=== PATIENT | male | born 1965 | race Hispanic/Latino ===

== ENCOUNTER 2018-06-01 09:18 | Inpatient (IN) | payer OTHER ==
[~2018-06-01] VITALS: Ht 162.6 cm; Wt 74.8 kg
[2018-06-01 11:30] LABS: BASOPHILS % (AUTO) 0.3 % (0.0-5.0); EOSINOPHILS % (AUTO) 1.9 % (0.0-8.0); HEMATOCRIT 24.8 % (42-54); LYMPHOCYTES % (AUTO) 28.8 % (21.0-51.0); MEAN CORPUSCULAR HEMOGLOBIN 25.6 pg (27.0-33.0); MEAN CORPUSCULAR VOLUME 77.6 fL (79-99); MONOCYTES % (AUTO) 9.6 % (3.0-13.0); NEUTROPHILS % (AUTO) 59.4 % (40.0-77.0); PLATELET COUNT (AUTO) 328 K/uL (130-400); RED CELL DISTRIBUTION WIDTH 13.4 % (11.0-15.5); WHITE BLOOD COUNT (AUTO) 8.8 K/uL (4.8-10.8)
[2018-06-01 11:37] LABS: POTASSIUM 3.9 mmol/L (3.5-5.1)
[2018-06-01 11:50] LABS: APPEARANCE,URINE TURBID (CLEAR); BILIRUBIN,URINE MODERATE (NEGATIVE); COLOR,URINE RED (YELLOW); GLUCOSE, URINE (UA) NEGATIVE (NEGATIVE); KETONES,URINE 5 mg/dL (NEGATIVE); LEUKOCYTE ESTERASE ,URINE MODERATE (NEGATIVE); NITRATE,URINE POSITIVE (NEGATIVE); OCCULT BLOOD,URINE LARGE (NEGATIVE); PH,URINE 6.5 (5.0-8.0); PROTEIN,URINE >=300 (NEGATIVE)
[2018-06-01 12:31] LABS: BACTERIA,URINE Few /HPF (None Seen); RBC,URINE TNTC /HPF (0-1); SQUAMOUS EPITHELIAL CELL,UR None Seen /HPF (0-2)
[2018-06-01] MEDS ORDERED: CEFTRIAXONE SODIUM 1 GM ONE (12:41)
[2018-06-01] MEDS ORDERED: SODIUM CHLORIDE 0.9% 0 ML IV ONE (12:42)
[2018-06-01] MEDS ORDERED: MORPHINE SULFATE 2 MG/ML 1ML SYG IV PRN (14:00)
[2018-06-01] MEDS: CEFTRIAXONE SODIUM 1 GM IV SCH (14:00)
[2018-06-01 17:16] VITALS: BP 120/63
[2018-06-01 19:08] VITALS: BP 118/65
[2018-06-01 19:23] LABS: HEMATOCRIT 21.6 % (42-54)
[2018-06-01] MEDS: SODIUM CHLORIDE 0.9% 1000ML 1,000 ML IV SCH ×2 (20:33→23:02)
[2018-06-01] MEDS: FAMOTIDINE 20MG TAB 20 MG TAB PO SCH (20:34)
[2018-06-01 23:18] VITALS: BP 105/55
[2018-06-02 01:41] LABS: HEMATOCRIT 21.7 % (42-54)
[2018-06-02 03:27] VITALS: BP 104/57
[2018-06-02 06:02] LABS: HEMATOCRIT 22.2 % (42-54); MEAN CORPUSCULAR HEMOGLOBIN 25.8 pg (27.0-33.0); MEAN CORPUSCULAR HGB CONC 33.6 g/dL (32.0-36.0); MEAN CORPUSCULAR VOLUME 76.8 fL (79-99); NUCLEATED RED BLOOD CELLS 0.1 % (0.0-0.19); PLATELET COUNT (AUTO) 284 K/uL (130-400); RED CELL DISTRIBUTION WIDTH 13.6 % (11.0-15.5); WHITE BLOOD COUNT (AUTO) 7.3 K/uL (4.8-10.8)
[2018-06-02 06:21] LABS: CREATININE 1.2 mg/dL (0.5-1.5); POTASSIUM 4.5 mmol/L (3.5-5.1)
[2018-06-02] MEDS: FAMOTIDINE 20MG TAB 20 MG TAB PO SCH ×2 (07:44→21:47)
[2018-06-02 08:01] VITALS: BP 107/65
[2018-06-02] MEDS ORDERED: GADODIAMIDE 5 MMOL/10 ML VIAL 5 MMOL/10 ML ML IV ONE (08:58)
[2018-06-02] MEDS ORDERED: GADODIAMIDE 10 MMOL/20 ML ML IV ONE (08:59)
[2018-06-02 11:54] VITALS: BP 121/68
--- NOTE | 2018-06-02 12:30 | NUR ---
PATIENT BACK FROM MRI COMPLAINTS OF DIFFICULTY VOIDING, SALVADOR CATHETER MANUALLY IRRIGATED WITH NO FLOW NOTED. AWARE. NEW 20FR 3 WAY COUDE CATHETER INSERTED USING STERILE TECHNIQUE. TOLERATED WELL. 800ML OF RED TINGED URINE NOTED IN SALVADOR CATHETER.. MEDICATED PER MARS. NO SIGNS OF DISTRESS NOTED. CALL LIGHT WITHIN REACH. WILL CONTINUE TO BE OBSERVED. Addendum: 06/02/18 at 1956 by YURY SPENCE RN RN Amended: Links added.
[2018-06-02 12:54] LABS: HEMATOCRIT 24.7 % (42-54)
[2018-06-02] MEDS: CEFTRIAXONE SODIUM 1 GM IV SCH (15:07)
[2018-06-02] MEDS: SODIUM CHLORIDE 0.9% 1000ML 1,000 ML IV SCH ×2 (15:15→19:56)
--- NOTE | 2018-06-02 16:19 | NUR ---
cm note met with patient and states resides at home at his friends house. independent with adls and ambulation. no dme. [facility] dc plan is back to same home setting at [place]. provided pt with list of low income clinics in the area and rx assist programs. and states he is following up with [facility] for possible josiane or medicaid assist. Addendum: 06/02/18 at 1622 by LAURA LAINEZ CM Amended: Links added.
[2018-06-02 16:25] VITALS: BP 120/59
[2018-06-02 19:06] VITALS: BP 120/63
[2018-06-02 19:26] LABS: HEMATOCRIT 23.2 % (42-54)
[2018-06-02 23:22] VITALS: BP_SYST 106; BP_SYST 121; BP_DIAS 55; BP_DIAS 61
[2018-06-03 01:30] LABS: HEMATOCRIT 21.5 % (42-54)
[2018-06-03 04:00] VITALS: BP 128/57
[2018-06-03] MEDS: SODIUM CHLORIDE 0.9% 1000ML 1,000 ML IV SCH ×2 (05:28→16:20)
[2018-06-03 05:48] LABS: BASOPHILS % (AUTO) 0.4 % (0.0-5.0); EOSINOPHILS % (AUTO) 2.6 % (0.0-8.0); LYMPHOCYTES % (AUTO) 29.1 % (21.0-51.0); MEAN CORPUSCULAR HGB CONC 32.2 g/dL (32.0-36.0); MEAN CORPUSCULAR VOLUME 77.5 fL (79-99); MONOCYTES % (AUTO) 8.7 % (3.0-13.0); NEUTROPHILS % (AUTO) 59.2 % (40.0-77.0); PLATELET COUNT (AUTO) 318 K/uL (130-400); RED BLOOD CELL COUNT(AUTO) 2.96 MIL/uL (4.50-6.20); RED CELL DISTRIBUTION WIDTH 13.4 % (11.0-15.5); WHITE BLOOD COUNT (AUTO) 7.9 K/uL (4.8-10.8)
[2018-06-03 06:15] LABS: ALBUMIN 2.7 g/dL (3.5-5.0); BILIRUBIN,TOTAL 0.2 mg/dL (0.2-1.0); CREATININE 1.1 mg/dL (0.5-1.5); POTASSIUM 4.2 mmol/L (3.5-5.1); TOTAL PROTEIN, SERUM 5.9 g/dL (6.0-8.3)
[2018-06-03] MEDS: FAMOTIDINE 20MG TAB 20 MG TAB PO SCH ×2 (08:20→22:05)
[2018-06-03 08:34] VITALS: BP 123/66
[2018-06-03 11:56] VITALS: BP 135/64
--- NOTE | 2018-06-03 12:40 | NUR ---
JEROD PLANNING- REFERRAL TO [facility]? NURSING COMMUNICATION- ORDER RECD RE REFERRAL TO [facility] FOR NEPHRECTOMY. SPOKE TO PT; WANTS SOMETHING CLOSE; ZARINA DISCUSSED [facility] MUSCODA- PT DECLINED. ZARINA CITED [facility]- PT AGREED TO HAV INFO SENT THER, BUT ASKED ABOUT MD'S IN [place] WILL SEEK REFERRAL TO UROLOGIST IN [place] [facility]TS FIRST CHOICE Addendum: 06/03/18 at 1406 by NED SANCHEZ RN CM Amended: Links added.
[2018-06-03 13:16] LABS: HEMATOCRIT 24.9 % (42-54)
[2018-06-03] MEDS: CEFTRIAXONE SODIUM 1 GM IV SCH (14:30)
[2018-06-03 16:19] VITALS: BP 129/61
--- NOTE | 2018-06-03 17:00 | NUR ---
REFERRAL TO [facility] SENT REFERRAL TO [facility]. COPY TO PT. ALSO GAVE PT INFO ON UROLOGIST CHARLA WALKER IN [place] IF REFERRAL TO [facility] IS NOT ACCEPTED
[2018-06-03 20:00] VITALS: BP 132/70
--- NOTE | 2018-06-03 22:55 | NUR ---
NOTE DR. IBARRA HERE TO SEE PATIENT. HELPED TRANSLATE AND RECEIVED ORDERS. AWAITING FOR ARRANGEMENTS TO BE MADE FOR HIS RECOMMENDATION FOR TRANSFER TO ANOTHER FACILITY FOR THE TUMOR REMOVAL.
[2018-06-04] VITALS: BP 116/62
--- NOTE | 2018-06-04 00:43 | NUR ---
NOTE PATIENT EXPERIENCING DISCOMFORT ON LOWER ABDOMEN. NOTED SALVADOR NOT DRAINING AT THIS TIME. INSTRUCTED PATIENT ON PROCEDURE AND THEN MANUALLY IRRIGATED SALVADOR AND REMOVED SEVERAL CLOTS, ABOUT A HAND FULL AMOUNT. WILL CONTINUE TO MONITOR.
--- NOTE | 2018-06-04 01:52 | NUR ---
NOTE PATIENT EXPERIENCING DISCOMFORT ON LOWER ABDOMEN ONCE MORE. NOTED SALVADOR NOT DRAINING. INSTRUCTED PATIENT ON PROCEDURE AND THEN MANUALLY IRRIGATED SALVADOR AND REMOVED A FEW LOTS, NOTED URINE DRAINING A LITTLE MORE BLOODY THAN BEFORE. WILL CONTINUE TO MONITOR.
[2018-06-04 04:00] VITALS: BP 109/59
[2018-06-04 05:08] LABS: MEAN CORPUSCULAR HEMOGLOBIN 25.3 pg (27.0-33.0); MEAN CORPUSCULAR HGB CONC 32.9 g/dL (32.0-36.0); MEAN CORPUSCULAR VOLUME 76.9 fL (79-99); PLATELET COUNT (AUTO) 296 K/uL (130-400); RED BLOOD CELL COUNT(AUTO) 2.73 MIL/uL (4.50-6.20); RED CELL DISTRIBUTION WIDTH 13.2 % (11.0-15.5); WHITE BLOOD COUNT (AUTO) 9.5 K/uL (4.8-10.8)
--- NOTE | 2018-06-04 06:30 | NUR ---
NOTE NOTIFIED PATIENT OF NEW LABS AND STANDING ORDER FOR TRANSFUSION DUE TO RESULTS FOR 2 UNITS OF BLOOD TO BE TRANSFUSED. HE AGREED TO RECEIVED AND CONSENT IS ALREADY IN CHART.
[2018-06-04] MEDS: SODIUM CHLORIDE 0.9% 1000ML 1,000 ML IV SCH ×3 (06:49→20:42)
[2018-06-04] MEDS ORDERED: SODIUM CHLORIDE 0.9% 250 ML IV ONE (06:50)
[2018-06-04 08:03] VITALS: BP 125/62
[2018-06-04] MEDS: FAMOTIDINE 20MG TAB 20 MG TAB PO SCH ×2 (08:55→20:41)
[2018-06-04 11:02] VITALS: BP 118/70
--- NOTE | 2018-06-04 13:50 | NUR ---
Transfused 2 units of PRBC's. Patient tolerated well.
--- NOTE | 2018-06-04 14:23 | NUR ---
F / UP TW [facility] REFAXED REFERRAL
[2018-06-04] MEDS: CEFTRIAXONE SODIUM 1 GM IV SCH (14:28)
[2018-06-04 16:39] LABS: HEMATOCRIT 26.9 % (42-54)
[2018-06-04 16:49] VITALS: BP 115/63
--- NOTE | 2018-06-04 17:14 | NUR ---
Patient with Sputum cx + Tasia Albicans. Blanca John notified and ordered Nistatin if visible white patches in oral mucosa.
--- NOTE | 2018-06-04 18:40 | NUR ---
Dr. Pate rounded with patient. No intervention. States pt will possibly need a nephrectomy.
[2018-06-04 20:00] VITALS: BP 117/63
[2018-06-05] VITALS: BP 115/56
[2018-06-05 04:00] VITALS: BP 119/60
[2018-06-05 04:09] LABS: HEMATOCRIT 25.6 % (42-54); MEAN CORPUSCULAR HEMOGLOBIN 26.3 pg (27.0-33.0); MEAN CORPUSCULAR HGB CONC 33.2 g/dL (32.0-36.0); MEAN CORPUSCULAR VOLUME 79.1 fL (79-99); PLATELET COUNT (AUTO) 300 K/uL (130-400); RED BLOOD CELL COUNT(AUTO) 3.24 MIL/uL (4.50-6.20); RED CELL DISTRIBUTION WIDTH 14.4 % (11.0-15.5); WHITE BLOOD COUNT (AUTO) 9.1 K/uL (4.8-10.8)
[2018-06-05] MEDS: SODIUM CHLORIDE 0.9% 1000ML 1,000 ML IV SCH ×2 (05:38→16:43)
[2018-06-05 09:35] VITALS: BP 118/91
[2018-06-05] MEDS: FAMOTIDINE 20MG TAB 20 MG TAB PO SCH ×2 (09:48→20:51)
--- NOTE | 2018-06-05 10:47 | NUR ---
CM FAMILY AT BEDSIDE W PT ; EXPLAINED THE PROCESS TO [facility]; WAITING ON WORD BACK FROM [facility]. UPDATES SENT THIS MORNING CALLED [employer] LOAN OFFICER ORIGINATOR AND LEFT MESSAGE
[2018-06-05 11:36] VITALS: BP 122/65
[2018-06-05] MEDS: CEFTRIAXONE SODIUM 1 GM IV SCH (16:42)
[2018-06-05 16:52] LABS: HEMATOCRIT 27.3 % (42-54)
[2018-06-05 16:55] VITALS: BP 116/61
[2018-06-05 20:00] VITALS: BP 123/77
[2018-06-05] MEDS: FERROUS SULFATE 325 MG TABLET.DR PO SCH (20:51)
--- NOTE | 2018-06-05 20:51 | NUR ---
F/C PT CLAIMS OF FEELING URGE TO URINATE EVEN WITH THE F/C. NOTED OUTPUT ON F/C BUT LEAKAGE ON URETHRA. STILL BLOODY URINE. FLUSHED F/C, FLUSHES WELL BUT NOT OUTPUT UPON ASPIRATION. ON GRAVITY F/C IS DRAINING GOOD. DUE MEDS ADMINISTERED, TOLERATED WELL. PT IS GETTING READY TO SHOWER. WILL RE-ASSESS F/C OUTPUT AFTER HIS SHOWER.
[2018-06-06] VITALS (7 sets, daily range): BP systolic 108–131; BP diastolic 57–68
--- NOTE | 2018-06-06 02:00 | NUR ---
ROUNDS PT FAIRLY ASLEEP WITH RESPIRATIONS EVEN AND UNLABORED. NO NOTED DISTRESS. KEPT RESTED AND COMFORTABLE. CALL LIGHT WITHIN REACH. WILL MONITOR PT.
[2018-06-06] MEDS: SODIUM CHLORIDE 0.9% 1000ML 1,000 ML IV SCH ×3 (03:38→23:56)
[2018-06-06 04:45] LABS: HEMATOCRIT 25.4 % (42-54); MEAN CORPUSCULAR HEMOGLOBIN 26.4 pg (27.0-33.0); MEAN CORPUSCULAR HGB CONC 33.6 g/dL (32.0-36.0); MEAN CORPUSCULAR VOLUME 78.7 fL (79-99); NUCLEATED RED BLOOD CELLS 0.1 % (0.0-0.19); PLATELET COUNT (AUTO) 306 K/uL (130-400); RED BLOOD CELL COUNT(AUTO) 3.23 MIL/uL (4.50-6.20); RED CELL DISTRIBUTION WIDTH 14.6 % (11.0-15.5); WHITE BLOOD COUNT (AUTO) 9.3 K/uL (4.8-10.8)
[2018-06-06 04:52] LABS: POTASSIUM 3.7 mmol/L (3.5-5.1)
--- NOTE | 2018-06-06 05:30 | NUR ---
ROUNDS PT IS RESTING WELL. NO COMPLAINTS OF PAINS NOR DISCOMFORT. F/C OUTPUT IS STILL BRIGHT RED BUT NOT BLOOD CLOTS. F/C PATENT. KEPT COMFORTABLE. FOR MORE CARE.
--- NOTE | 2018-06-06 09:00 | NUR ---
ACCEPTED IN [facility] RECD CALL FORM [facility] FOR APPT 06/13. PENDING FAX WITH INFO, WILL POST TO CHART. PLT STILL HAVING CLOTS IN URINE.. WILL DISCUSS DISCHARGE DISPOSITION WITH
[2018-06-06] MEDS: FAMOTIDINE 20MG TAB 20 MG TAB PO SCH ×2 (09:06→20:28)
[2018-06-06] MEDS: FERROUS SULFATE 325 MG TABLET.DR PO SCH ×2 (09:06→20:28)
[2018-06-06] MEDS: CEFTRIAXONE SODIUM 1 GM IV SCH (13:28)
[2018-06-06 16:03] LABS: HEMATOCRIT 26.3 % (42-54)
--- NOTE | 2018-06-06 18:26 | NUR ---
Nutrition Assessment: Pt triggered for nutrition screen based on LOS. Pt is on a regular diet. Pt with good po intake. Labs reviewed. BMI 28.3 (overweight). LBM 06/06/18. Pt with no skin breakdown. Pt had blood transfusion. RD to monitor po intake. Consult RD as needed. Addendum: 06/06/18 at [address] Amended: Links added.
[2018-06-07 04:00] VITALS: BP 109/59
[2018-06-07 04:09] LABS: HEMATOCRIT 25.9 % (42-54)
[2018-06-07 08:00] VITALS: BP 106/55
--- NOTE | 2018-06-07 09:00 | NUR ---
DC PLAN- POSS EARLIER APPT? SENT UPDATED PN TO ME SA TRY TO SEE IF AN EARLIER APPOINT WAS AVAILABLE FOR PT. OF NOW, 06/13 IS THE EARLIEST AVAIL TO ABLE
[2018-06-07 11:00] VITALS: BP 118/58
[2018-06-07] MEDS: CEFTRIAXONE SODIUM 1 GM IV SCH (13:45)
[2018-06-07] MEDS: SODIUM CHLORIDE 0.9% 1000ML 1,000 ML IV SCH (13:45)
[2018-06-07] MEDS: FAMOTIDINE 20MG TAB 20 MG TAB PO SCH ×2 (13:52→21:31)
[2018-06-07] MEDS: FERROUS SULFATE 325 MG TABLET.DR PO SCH ×2 (13:52→21:31)
[2018-06-07 16:00] VITALS: BP 115/60
[2018-06-07 16:53] LABS: HEMATOCRIT 26.9 % (42-54)
[2018-06-07 20:00] VITALS: BP 115/65
[2018-06-08] VITALS: BP 126/60
[2018-06-08 04:00] VITALS: BP 115/59
[2018-06-08 05:39] LABS: HEMATOCRIT 26.1 % (42-54)
[2018-06-08 08:00] VITALS: BP 108/58
[2018-06-08] MEDS: FAMOTIDINE 20MG TAB 20 MG TAB PO SCH ×2 (09:13→19:56)
[2018-06-08] MEDS: FERROUS SULFATE 325 MG TABLET.DR PO SCH ×2 (09:13→19:56)
[2018-06-08] MEDS: SODIUM CHLORIDE 0.9% 1000ML 1,000 ML IV SCH ×2 (09:13→19:56)
[2018-06-08 11:00] VITALS: BP 130/66
[2018-06-08] MEDS: CEFTRIAXONE SODIUM 1 GM IV SCH (13:12)
[2018-06-08 16:00] VITALS: BP 119/65
[2018-06-08 20:34] VITALS: BP 117/58
[2018-06-09 00:02] VITALS: BP 113/58
[2018-06-09 04:00] VITALS: BP 112/55
[2018-06-09] MEDS: SODIUM CHLORIDE 0.9% 1000ML 1,000 ML IV SCH ×2 (05:32→11:56)
[2018-06-09 06:06] LABS: HEMATOCRIT 26.7 % (42-54); MEAN CORPUSCULAR HEMOGLOBIN 26.8 pg (27.0-33.0); MEAN CORPUSCULAR HGB CONC 33.6 g/dL (32.0-36.0); MEAN CORPUSCULAR VOLUME 79.6 fL (79-99); PLATELET COUNT (AUTO) 372 K/uL (130-400); RED BLOOD CELL COUNT(AUTO) 3.35 MIL/uL (4.50-6.20); RED CELL DISTRIBUTION WIDTH 15.4 % (11.0-15.5); WHITE BLOOD COUNT (AUTO) 10.4 K/uL (4.8-10.8)
[2018-06-09 06:19] LABS: CREATININE 1.1 mg/dL (0.5-1.5)
[2018-06-09 08:00] VITALS: BP 115/64
[2018-06-09] MEDS: FAMOTIDINE 20MG TAB 20 MG TAB PO SCH ×2 (10:23→20:08)
[2018-06-09] MEDS: FERROUS SULFATE 325 MG TABLET.DR PO SCH ×2 (10:23→20:08)
[2018-06-09 11:00] VITALS: BP 113/68
[2018-06-09] MEDS: CEFTRIAXONE SODIUM 1 GM IV SCH (13:39)
[2018-06-09 16:00] VITALS: BP 125/69
[2018-06-09 19:17] VITALS: BP 116/63
[2018-06-10 00:22] VITALS: BP 126/60
[2018-06-10 04:30] VITALS: BP 111/62
[2018-06-10] MEDS: SODIUM CHLORIDE 0.9% 1000ML 1,000 ML IV SCH (05:36)
[2018-06-10 06:03] LABS: HEMATOCRIT 26.2 % (42-54); MEAN CORPUSCULAR HEMOGLOBIN 26.7 pg (27.0-33.0); MEAN CORPUSCULAR HGB CONC 33.8 g/dL (32.0-36.0); MEAN CORPUSCULAR VOLUME 79.1 fL (79-99); PLATELET COUNT (AUTO) 355 K/uL (130-400); RED BLOOD CELL COUNT(AUTO) 3.31 MIL/uL (4.50-6.20); RED CELL DISTRIBUTION WIDTH 15.3 % (11.0-15.5); WHITE BLOOD COUNT (AUTO) 8.9 K/uL (4.8-10.8)
[2018-06-10 08:24] VITALS: BP 104/55
[2018-06-10] MEDS ORDERED: CEFD300C3 PO (08:43)
[2018-06-10] MEDS ORDERED: FERR324T4 PO (08:43)
[2018-06-10] MEDS: FAMOTIDINE 20MG TAB 20 MG TAB PO SCH (09:03)
[2018-06-10] MEDS: FERROUS SULFATE 325 MG TABLET.DR PO SCH (09:04)
[2018-06-10 11:55] VITALS: BP 120/66
== END 2018-06-10 14:06 | disposition home or self-care (01) | DRG 687 ==
LOC: EDH 09:18 → EDHIP 09:19 → 4BH 17:16
PROVIDERS: ADMIT Hospitalist; ATTEND Hospitalist
PROC: 30233N1 Transfusion of Nonautologous Red Blood Cells into Peripheral Vein, Percutaneous Approach (ICD-10-PCS; principal; 2018-06-10)
DX: C64.1 Malignant neoplasm of right kidney, except renal pelvis (principal); D62 Acute posthemorrhagic anemia; D50.0 Iron deficiency anemia secondary to blood loss (chronic); R31.0 Gross hematuria; Z87.891 Personal history of nicotine dependence
CPT/HCPCS: 36415; 71250; 74183; 80048; 80053; 81001; 85014; 85018; 85025; 85027; 86850; 86900; 86901; 86922; 87088; A4218; A9579; G0378; J0696; J7030; P9016

== ENCOUNTER 2019-03-03 12:23 | Emergency (ER) | payer SELFPAY ==
[~2019-03-03 12:23] MED LIST: CEFD300C3 PO; FERR324T4 PO
[2019-03-03 12:49] LABS: BASOPHILS % (AUTO) 0.5 % (0.0-5.0); EOSINOPHILS % (AUTO) 1.6 % (0.0-8.0); HEMATOCRIT 37.2 % (42-54); LYMPHOCYTES % (AUTO) 17.3 % (21.0-51.0); MEAN CORPUSCULAR HEMOGLOBIN 23.3 pg (27.0-33.0); MEAN CORPUSCULAR HGB CONC 31.7 g/dL (32.0-36.0); MEAN CORPUSCULAR VOLUME 73.5 fL (79-99); MONOCYTES % (AUTO) 8.1 % (3.0-13.0); NEUTROPHILS % (AUTO) 71.7 % (40.0-77.0); PLATELET COUNT (AUTO) 376 K/uL (130-400); RED BLOOD CELL COUNT(AUTO) 5.06 MIL/uL (4.50-6.20); RED CELL DISTRIBUTION WIDTH 16.1 % (11.0-15.5); WHITE BLOOD COUNT (AUTO) 10.7 K/uL (4.8-10.8)
[2019-03-03 13:10] LABS: INR 1.03 (0.85-1.15); PARTIAL THROMBOPLASTIN TIME 26.3 SEC (26.3-35.5); PROTHROMBIN TIME 10.8 SEC (9.6-11.6)
[2019-03-03 13:14] LABS: B-TYPE NATRIURETIC PEPTIDE 8 pg/mL (0-100)
[2019-03-03 13:19] LABS: CREATININE 1.1 mg/dL (0.5-1.5); POTASSIUM 4.1 mmol/L (3.5-5.1)
[2019-03-03 13:23] LABS: ALBUMIN 3.4 g/dL (3.5-5.0); BILIRUBIN,TOTAL 0.4 mg/dL (0.2-1.0); TOTAL PROTEIN, SERUM 7.9 g/dL (6.0-8.3)
[2019-03-03] MEDS ORDERED: IOHEXOL-350 75 ML VIAL IV ONE (14:03)
== END 2019-03-03 16:52 | disposition home or self-care (01) ==
LOC: EDH 12:23
DX: R06.00 Dyspnea, unspecified (principal); Z85.528 Personal history of other malignant neoplasm of kidney
CPT/HCPCS: 36415; 71045; 71275; 80053; 82550; 83690; 83880; 84484; 85025; 85610; 85730; 93005; 99285; Q9967

== ENCOUNTER 2019-04-05 18:36 | Inpatient (IN) | payer OTHER ==
[~2019-04-05] VITALS: Ht 160 cm; Wt 78.6 kg
[2019-04-05 19:42] LABS: APPEARANCE,URINE TURBID (CLEAR); BASOPHILS % (AUTO) 0.4 % (0.0-5.0); BILIRUBIN,URINE MODERATE (NEGATIVE); COLOR,URINE RED (YELLOW); EOSINOPHILS % (AUTO) 1.5 % (0.0-8.0); GLUCOSE, URINE (UA) NEGATIVE (NEGATIVE); HEMATOCRIT 36.6 % (42-54); KETONES,URINE 5 mg/dL (NEGATIVE); LEUKOCYTE ESTERASE ,URINE MODERATE (NEGATIVE); LYMPHOCYTES % (AUTO) 13.7 % (21.0-51.0); MEAN CORPUSCULAR HEMOGLOBIN 23.6 pg (27.0-33.0); MEAN CORPUSCULAR HGB CONC 31.7 g/dL (32.0-36.0); MEAN CORPUSCULAR VOLUME 74.5 fL (79-99); NEUTROPHILS % (AUTO) 77.7 % (40.0-77.0); NITRATE,URINE POSITIVE (NEGATIVE); OCCULT BLOOD,URINE LARGE (NEGATIVE); PH,URINE 6.5 (5.0-8.0); PLATELET COUNT (AUTO) 310 K/uL (130-400); PROTEIN,URINE >=300 mg/dL (NEGATIVE); RED BLOOD CELL COUNT(AUTO) 4.91 MIL/uL (4.50-6.20); RED CELL DISTRIBUTION WIDTH 15.7 % (11.0-15.5); WHITE BLOOD COUNT (AUTO) 11.4 K/uL (4.8-10.8)
[2019-04-05 19:53] LABS: CREATININE 1.1 mg/dL (0.5-1.5); POTASSIUM 3.9 mmol/L (3.5-5.1)
[2019-04-05 19:58] LABS: ALBUMIN 3.3 g/dL (3.5-5.0); BILIRUBIN,TOTAL 0.6 mg/dL (0.2-1.0); TOTAL PROTEIN, SERUM 7.6 g/dL (6.0-8.3)
[2019-04-05 20:07] LABS: BACTERIA,URINE Moderate /HPF (None Seen); MUCUS,URINE Few LPF (None Seen); RBC,URINE 51-100 /HPF (0-1); SQUAMOUS EPITHELIAL CELL,UR 0-2 /HPF (0-2)
[2019-04-05] MEDS ORDERED: CEFTRIAXONE SODIUM 1 GM ONE (21:11)
[2019-04-05] MEDS ORDERED: SODIUM CHLORIDE 0.9% 50 ML IV ONE (21:13)
[2019-04-05] MEDS ORDERED: NITROGLYCERIN 0.4 MG SL TAB SL PRN (23:15)
[2019-04-05] MEDS ORDERED: ONDANSETRON HCL 4 MG/2 ML VIAL IV PRN (23:15)
[2019-04-05 23:58] LABS: MAGNESIUM 1.8 mg/dL (1.80-2.40)
[2019-04-06 00:21] VITALS: BP 131/61
[2019-04-06 01:22] LABS: HEMATOCRIT 36.3 % (42-54)
[2019-04-06 01:49] LABS: HEMOGLOBIN A1C 5.6 % (4.0-6.0)
[2019-04-06] MEDS: SODIUM CHLORIDE 0.9% 1000ML 1,000 ML IV SCH ×3 (02:56→19:58)
[2019-04-06 05:53] VITALS: BP 116/58
[2019-04-06 07:11] LABS: MEAN CORPUSCULAR HEMOGLOBIN 23.9 pg (27.0-33.0); MEAN CORPUSCULAR VOLUME 74.8 fL (79-99); PLATELET COUNT (AUTO) 305 K/uL (130-400); RED BLOOD CELL COUNT(AUTO) 4.68 MIL/uL (4.50-6.20); RED CELL DISTRIBUTION WIDTH 16.1 % (11.0-15.5); WHITE BLOOD COUNT (AUTO) 11.4 K/uL (4.8-10.8)
[2019-04-06 07:30] VITALS: BP 132/63
[2019-04-06 07:30] LABS: ALBUMIN 3.2 g/dL (3.5-5.0); BILIRUBIN,TOTAL 0.6 mg/dL (0.2-1.0); MAGNESIUM 1.7 mg/dL (1.80-2.40); POTASSIUM 4.2 mmol/L (3.5-5.1); TOTAL PROTEIN, SERUM 7.4 g/dL (6.0-8.3)
--- NOTE | 2019-04-06 08:55 | NUR ---
Patient provided medical records from [facility] from previous admission. Received verbal permission from patient to make copies. Called Dr. Contreras's answering service to notify of urology consult and left message on Dr. Pate's mobile to notify of Oncology consult.
[2019-04-06 09:20] LABS: BAND NEUTROPHILS % (MANUAL) 1 % (0-2); EOSINOPHILS % (MANUAL) 1 % (1-6); LYMPHOCYTES % (MANUAL) 20 % (22-44); MONOCYTES % (MANUAL) 10 % (2-9); REACTIVE LYMPHOCYTES 4 % (0-0); SEGMENTED NEUTROPHILS % 64 % (40-70)
[2019-04-06 09:21] LABS: PLATELET MORPHOLOGY COMMENT ADEQUATE
[2019-04-06 11:00] VITALS: BP 102/54
[2019-04-06] MEDS: FAMOTIDINE 20MG TAB 20 MG TAB PO SCH ×2 (12:11→19:58)
[2019-04-06] MEDS: CEFTRIAXONE SODIUM 1 GM IV SCH (12:25)
[2019-04-06 13:04] LABS: HEMATOCRIT 34.6 % (42-54)
[2019-04-06 16:00] VITALS: BP 119/59
--- NOTE | 2019-04-06 19:03 | NUR ---
cm note met with patient and states resides at home with friend little duval, states he is independent with adls and ambulation, no dme. [facility] was accepted and friend little takes him to [place] for visits. pt at [facility] for followup with a renal md, is dx with Renal Ca and has started disability process and applied at Dr. TATTOFF for SSI, and possible medicaid or medicare, he is a resident since 1999, and has been working since, [facility] he is currently apealing the case due to denial. and is also applying at the [facility] for possible assistance, currently he sees private pay dr Jhonny Bassett as his pcp in [place], he gave him letter of disability, and also [facility] md also gave him letter of disability, dc plan is back home at time of dc. referral made to José Manuel. for possible assistance. Addendum: 04/06/19 at 1910 by LAURA LAINEZ CM Amended: Links added.
[2019-04-06 19:08] LABS: HEMATOCRIT 35.7 % (42-54)
[2019-04-06 20:26] VITALS: BP 136/64
[2019-04-07] VITALS (12 sets, daily range): BP systolic 109–148; BP diastolic 55–77
[2019-04-07 01:11] LABS: HEMATOCRIT 35.3 % (42-54)
--- NOTE | 2019-04-07 08:00 | NUR ---
AM SHIFT ASSESSMENT: NPO FOR RENAL BX AND ALSO HAS A BONE IMAGING PENDING. NS INFUSING AT 100ML/HR, SALVADOR CATH. IN PLACE AND DRAINING TO GRAVITY. URINE BLOODY AND IRRIGATION PRN.
[2019-04-07 09:14] LABS: INR 1.06 (0.85-1.15); PARTIAL THROMBOPLASTIN TIME 26.6 SEC (26.3-35.5); PROTHROMBIN TIME 11.1 SEC (9.6-11.6)
[2019-04-07] MEDS: CEFTRIAXONE SODIUM 1 GM IV SCH (09:53)
[2019-04-07] MEDS: FAMOTIDINE 20MG TAB 20 MG TAB PO SCH ×2 (09:53→20:07)
--- NOTE | 2019-04-07 10:15 | NUR ---
TO RAD DEPT. NOW FOR RT. RENAL BX.
[2019-04-07] MEDS ORDERED: FENTANYL CITRATE PF 50 MCG/1 ML 2ML VIAL ONE (11:12)
[2019-04-07] MEDS ORDERED: MIDAZOLAM HCL 1 MG/ML 2ML VIAL ONE (11:12)
--- NOTE | 2019-04-07 11:15 | NUR ---
BACK FROM RAD. DEPT WILL KEEP BEDREST FOR 2 HRS. HH DIET ORDERED
--- NOTE | 2019-04-07 11:45 | NUR ---
CT GD RT RENAL MASS BX PROCEDURE PERFORMED BY DR Nickie MADDEN. PUNCTURE SITE RT LOWER BACK AND PATIENT TOLERATED PROCEDURE WELL. SPECIMEN X 3 COLLECTED AND SENT TO LAB. END OF PROCEDURE AT 1130. FLOSEAL INJECTED TO BIOPSY SITE. BIOPSY NEEDLE REMOVED AND DRESSING APPLIED. NO BLEEDING NOTED. REPORT GIVEN TO Alan SARAVIA RN AND PATIENT TRANSPORTED TO [address] [place] [address] BED AT 1145. AAO X3 WITH NO C/O PAIN. SPECIMEN SENT TO LAB.
--- NOTE | 2019-04-07 12:39 | NUR ---
dr. valles in to see pt. orders given and entered
[2019-04-07] MEDS: SODIUM CHLORIDE 0.9% 1000ML 1,000 ML IV SCH (20:08)
[2019-04-07] MEDS: ACETAMINOPHEN 325 MG TAB PO PRN (21:37)
[2019-04-08] VITALS (11 sets, daily range): BP systolic 102–155; BP diastolic 52–78
[2019-04-08 05:31] LABS: BASOPHILS % (AUTO) 0.2 % (0.0-5.0); EOSINOPHILS % (AUTO) 2.5 % (0.0-8.0); HEMATOCRIT 37.9 % (42-54); LYMPHOCYTES % (AUTO) 20.2 % (21.0-51.0); MEAN CORPUSCULAR HEMOGLOBIN 23.3 pg (27.0-33.0); MEAN CORPUSCULAR HGB CONC 30.6 g/dL (32.0-36.0); MEAN CORPUSCULAR VOLUME 76.3 fL (79-99); MONOCYTES % (AUTO) 7.3 % (3.0-13.0); NEUTROPHILS % (AUTO) 68.9 % (40.0-77.0); PLATELET COUNT (AUTO) 335 K/uL (130-400); RED BLOOD CELL COUNT(AUTO) 4.97 MIL/uL (4.50-6.20); WHITE BLOOD COUNT (AUTO) 12.2 K/uL (4.8-10.8)
[2019-04-08 05:56] LABS: CREATININE 1.2 mg/dL (0.5-1.5); POTASSIUM 3.9 mmol/L (3.5-5.1)
[2019-04-08] MEDS: FAMOTIDINE 20MG TAB 20 MG TAB PO SCH ×2 (09:00→21:00)
--- NOTE | 2019-04-08 09:05 | NUR ---
C/O OF BLADDER FEELING FULL AND BEGINNING TO FEEL SOME DISCOMFORT. CATH IRRIGATED AND FLOW STARTED . DRAINED 500ML. PT. NOW STATES FEELS MUCH BETTER
[2019-04-08] MEDS ORDERED: IODIXANOL 320 MG/ML 100 ML VIAL ONE ×2 (09:18→10:58)
[2019-04-08] MEDS ORDERED: LIDOCAINE HCL 2% 20ML ONE (09:18)
[2019-04-08] MEDS ORDERED: HEPARIN SODIUM 1000UNIT/ML 10ML VIAL ONE (09:18)
--- NOTE | 2019-04-08 09:20 | NUR ---
TO SALES TEACHER NOW FOR RT.RENAL ARTERY EMBOLIZATION.
[2019-04-08] MEDS ORDERED: MIDAZOLAM HCL 1 MG/ML 2ML VIAL ONE (09:35)
[2019-04-08] MEDS ORDERED: FENTANYL CITRATE PF 50 MCG/1 ML 2ML VIAL ONE (09:35)
[2019-04-08] MEDS: CEFTRIAXONE SODIUM 1 GM IV SCH (09:38)
--- NOTE | 2019-04-08 11:40 | NUR ---
BACK FROM HAIRSPRING INSPECTOR, DRESSING TO RT. GROIN IN PLACE AND WELL SECURED. AREA SOFT, NO BLEEDING NOTED AND NO PAIN TO SITE
[2019-04-08] MEDS ORDERED: MORPHINE SULFATE 4 MG/1ML SYG ONE (12:27)
[2019-04-08] MEDS ORDERED: FENTANYL 1000MCG+NS 100ML 100 ML IV PRN (12:30)
[2019-04-08] MEDS ORDERED: HYDROMORPHONE PCA 10 MG/50 ML 50 ML IV PRN (12:30)
--- NOTE | 2019-04-08 12:51 | NUR ---
BLADDER FEELING FULL AGAIN AND DRAINING SOPPED, IRRIGATED AND NOW DRAINING EASIER URINE, URINE STARTING TO LOOK A LITTLE CLEARER.
[2019-04-08] MEDS: SODIUM CHLORIDE 0.9% 1000ML 1,000 ML IV SCH (12:56)
[2019-04-08] MEDS: MORPHINE SULFATE 2 MG/ML 1ML SYG IVP PRN ×3 (15:29→21:25)
--- NOTE | 2019-04-08 19:00 | NUR ---
TO RAD DEPT NOW FOR BONE SCAN.
[2019-04-08] MEDS: HYDROMORPHONE HCL 0.5 MG/0.5 ML ML IVP PRN (23:52)
[2019-04-09] VITALS: BP 164/60
[2019-04-09] MEDS: HYDROMORPHONE HCL 0.5 MG/0.5 ML ML IVP PRN ×5 (03:40→21:06)
[2019-04-09 04:00] VITALS: BP 150/67
[2019-04-09 05:02] LABS: BASOPHILS % (AUTO) 0.1 % (0.0-5.0); EOSINOPHILS % (AUTO) 0.1 % (0.0-8.0); HEMATOCRIT 32.2 % (42-54); LYMPHOCYTES % (AUTO) 8.5 % (21.0-51.0); MEAN CORPUSCULAR HEMOGLOBIN 23.8 pg (27.0-33.0); MEAN CORPUSCULAR VOLUME 74.5 fL (79-99); MONOCYTES % (AUTO) 7.9 % (3.0-13.0); NEUTROPHILS % (AUTO) 82.8 % (40.0-77.0); PLATELET COUNT (AUTO) 251 K/uL (130-400); RED BLOOD CELL COUNT(AUTO) 4.32 MIL/uL (4.50-6.20); RED CELL DISTRIBUTION WIDTH 15.7 % (11.0-15.5); WHITE BLOOD COUNT (AUTO) 16.4 K/uL (4.8-10.8)
[2019-04-09 05:18] LABS: POTASSIUM 3.6 mmol/L (3.5-5.1)
[2019-04-09] MEDS ORDERED: BENZONATATE 100 MG CAPSULE PO PRN (06:00)
[2019-04-09] MEDS: SODIUM CHLORIDE 0.9% 1000ML 1,000 ML IV SCH ×2 (06:45→17:22)
[2019-04-09] MEDS: FAMOTIDINE 20MG TAB 20 MG TAB PO SCH ×2 (09:00→21:00)
[2019-04-09 12:00] VITALS: BP 142/64
[2019-04-09] MEDS: CEFTRIAXONE SODIUM 1 GM IV SCH (12:04)
[2019-04-09 13:45] LABS: BASOPHILS % (AUTO) 0.1 % (0.0-5.0); EOSINOPHILS % (AUTO) 0.1 % (0.0-8.0); HEMATOCRIT 32.6 % (42-54); LYMPHOCYTES % (AUTO) 8.4 % (21.0-51.0); MEAN CORPUSCULAR HEMOGLOBIN 23.7 pg (27.0-33.0); MEAN CORPUSCULAR HGB CONC 31.9 g/dL (32.0-36.0); MEAN CORPUSCULAR VOLUME 74.4 fL (79-99); MONOCYTES % (AUTO) 7.5 % (3.0-13.0); NEUTROPHILS % (AUTO) 83.3 % (40.0-77.0); PLATELET COUNT (AUTO) 210 K/uL (130-400); RED BLOOD CELL COUNT(AUTO) 4.38 MIL/uL (4.50-6.20); RED CELL DISTRIBUTION WIDTH 15.6 % (11.0-15.5); WHITE BLOOD COUNT (AUTO) 17.1 K/uL (4.8-10.8)
[2019-04-09] MEDS ORDERED: HYDROMORPHONE 1 MG/1 ML AMP IVP PRN (14:00)
--- NOTE | 2019-04-09 14:20 | NUR ---
Dr. Flores's office notified of consult, Dr. Flores paged.
[2019-04-09 16:00] VITALS: BP 140/62
[2019-04-09] MEDS: ACETAMINOPHEN 325 MG TAB PO PRN (17:19)
[2019-04-09] MEDS: POLYETHYLENE GLYCOL 3350 17 GM POWD.PACK PO SCH (17:22)
[2019-04-09] MEDS ORDERED: VANCOMYCIN PROTOCOL PER PHARMACY IV SCH (17:30)
[2019-04-09] MEDS ORDERED: COMPOUND IV REFRIGERATED 1 EACH IVSOLN MISC PRN (18:15)
[2019-04-09] MEDS ORDERED: VANCOMYCIN 1.5 GM in SODIUM CHLORIDE 0.9% 250 ML IV ONE (18:15)
[2019-04-09 20:00] VITALS: BP 135/53
[2019-04-09] MEDS ORDERED: TEMAZEPAM 15 MG CAPSULE PO PRN (20:45)
[2019-04-09] MEDS: ZOSYN 3.375GM+NS 50ML 50 ML IV SCH (20:56)
[2019-04-10] VITALS: BP 132/64
[2019-04-10] MEDS: HYDROMORPHONE HCL 0.5 MG/0.5 ML ML IVP PRN ×6 (01:06→21:37)
[2019-04-10 03:20] LABS: APPEARANCE,URINE SL CLOUDY (CLEAR); BILIRUBIN,URINE SMALL (NEGATIVE); COLOR,URINE ORANGE (YELLOW); GLUCOSE, URINE (UA) NEGATIVE (NEGATIVE); KETONES,URINE NEGATIVE (NEGATIVE); LEUKOCYTE ESTERASE ,URINE NEGATIVE (NEGATIVE); NITRATE,URINE POSITIVE (NEGATIVE); OCCULT BLOOD,URINE LARGE (NEGATIVE); PROTEIN,URINE 100 mg/dL (NEGATIVE)
[2019-04-10] MEDS: SODIUM CHLORIDE 0.9% 1000ML 1,000 ML IV SCH ×3 (03:27→23:04)
[2019-04-10] MEDS: ACETAMINOPHEN 325 MG TAB PO PRN ×3 (03:28→23:33)
[2019-04-10 03:30] LABS: RBC,URINE TNTC /HPF (0-1)
[2019-04-10 03:32] LABS: BACTERIA,URINE Moderate /HPF (None Seen); YEAST,URINE BUDDING Rare /HPF (None Seen)
[2019-04-10 04:00] VITALS: BP 104/68
[2019-04-10] MEDS: ZOSYN 3.375GM+NS 50ML 50 ML IV SCH ×3 (05:07→21:30)
[2019-04-10] MEDS ORDERED: VANCOMYCIN 1GM+NS 250ML 250 ML IV SCH (06:00)
[2019-04-10 07:43] VITALS: BP 109/61
--- NOTE | 2019-04-10 08:49 | NUR ---
Blade Balancer Mayra called Dr. Flores's office to inquire of consultation. Per Aubrie at Dr. Flores's office, Dr. Flores did take consult. Pending call back.
[2019-04-10] MEDS: FAMOTIDINE 20MG TAB 20 MG TAB PO SCH ×2 (09:00→21:00)
[2019-04-10] MEDS: VANCOMYCIN 1GM+NS 250ML 250 ML IV SCH ×2 (09:25→21:30)
[2019-04-10] MEDS: POLYETHYLENE GLYCOL 3350 17 GM POWD.PACK PO SCH (09:26)
[2019-04-10 11:30] VITALS: BP 121/42
[2019-04-10 16:00] VITALS: BP 142/70
--- NOTE | 2019-04-10 17:30 | NUR ---
Nutrition Intervention: Nutrition screen based on LOS x 5 days. Pt. S/P Ureteral catheter placement(04/05/2019). Pt. on 75gm CCD Heart Healthy diet with good p.o. intake, as per pt. Labs reviewed(Alb 3.2, BG 135, HgbA1c 5.6%). LBM: 04/06/2019. Pt. on Miralax for problems with constipation. BMI: 30.7, Obesity Grade 1. Recommendations: 1) Continue current diet. 2) Continue to monitor pt's nutritional status. 3) Consult RD as nutrition concerns arise. Addendum: 04/10/19 at [address] Amended: Links added.
[2019-04-10 20:00] VITALS: BP 109/59
[2019-04-11] VITALS: BP 152/66
--- NOTE | 2019-04-11 01:51 | NUR ---
Pt. temp 102.6 after tylenol and IVABT as ordered; pt. also cooled by ice packs without effect. VS 137/78-97-22 102.6. Notified Chad Castillo SECURITY TRAINER and rec'd orders for rpt. labwork. PRN dilaudid for pain at pt. request. Addendum: 04/11/19 at 0617 by ARTURO PRIETO RN RN PRN dilaudid given at 0151- administration not saved as computer battery ; rescanned at a later time.
[2019-04-11 04:00] VITALS: BP 112/60
[2019-04-11] MEDS: HYDROMORPHONE HCL 0.5 MG/0.5 ML ML IVP PRN ×6 (04:20→23:04)
[2019-04-11] MEDS: ZOSYN 3.375GM+NS 50ML 50 ML IV SCH ×3 (04:28→22:23)
--- NOTE | 2019-04-11 04:44 | NUR ---
Pt. temp decreased to 99.8 without further intervention.
[2019-04-11 04:56] LABS: BASOPHILS % (AUTO) 0.2 % (0.0-5.0); EOSINOPHILS % (AUTO) 0.3 % (0.0-8.0); HEMATOCRIT 28.7 % (42-54); LYMPHOCYTES % (AUTO) 9.7 % (21.0-51.0); MEAN CORPUSCULAR HEMOGLOBIN 23.8 pg (27.0-33.0); MEAN CORPUSCULAR HGB CONC 31.7 g/dL (32.0-36.0); MEAN CORPUSCULAR VOLUME 74.9 fL (79-99); MONOCYTES % (AUTO) 8.1 % (3.0-13.0); NEUTROPHILS % (AUTO) 81.1 % (40.0-77.0); PLATELET COUNT (AUTO) 205 K/uL (130-400); RED BLOOD CELL COUNT(AUTO) 3.83 MIL/uL (4.50-6.20); RED CELL DISTRIBUTION WIDTH 15.6 % (11.0-15.5); WHITE BLOOD COUNT (AUTO) 17.2 K/uL (4.8-10.8)
[2019-04-11 05:09] LABS: CREATININE 1.1 mg/dL (0.5-1.5); POTASSIUM 3.5 mmol/L (3.5-5.1)
--- NOTE | 2019-04-11 05:53 | NUR ---
PCT level of 2.03 rec'd lab; abdirahmanied Chad Castillo STONE SPREADER OPERATOR- no new orders.
[2019-04-11 08:57] VITALS: BP 116/62
[2019-04-11] MEDS: FAMOTIDINE 20MG TAB 20 MG TAB PO SCH ×2 (09:00→21:00)
[2019-04-11] MEDS: POLYETHYLENE GLYCOL 3350 17 GM POWD.PACK PO SCH (09:05)
[2019-04-11] MEDS: VANCOMYCIN 1GM+NS 250ML 250 ML IV SCH (09:06)
[2019-04-11] MEDS: SODIUM CHLORIDE 0.9% 1000ML 1,000 ML IV SCH (09:08)
[2019-04-11] MEDS ORDERED: VANCOMYCIN 1.25 GM in SODIUM CHLORIDE 0.9% 250 ML IV SCH (10:26)
[2019-04-11] MEDS ORDERED: COMPOUND IV REFRIGERATED 1 EACH IVSOLN MISC PRN (10:45)
[2019-04-11 11:00] VITALS: BP 126/63
[2019-04-11] MEDS: ACETAMINOPHEN 325 MG TAB PO PRN ×2 (15:02→23:11)
[2019-04-11] MEDS ORDERED: IOHEXOL-350 75 ML VIAL IV ONE (15:46)
[2019-04-11 17:23] VITALS: BP 114/56
[2019-04-11 20:33] VITALS: BP 129/68
[2019-04-11] MEDS: VANCOMYCIN 1.25 GM in SODIUM CHLORIDE 0.9% 250 ML IV SCH (22:23)
[2019-04-12] VITALS (7 sets, daily range): BP systolic 121–139; BP diastolic 58–70
[2019-04-12] MEDS: SODIUM CHLORIDE 0.9% 1000ML 1,000 ML IV SCH ×3 (00:42→20:30)
[2019-04-12] MEDS: HYDROMORPHONE HCL 0.5 MG/0.5 ML ML IVP PRN ×6 (03:12→23:01)
[2019-04-12] MEDS: ZOSYN 3.375GM+NS 50ML 50 ML IV SCH (04:36)
[2019-04-12 08:03] LABS: BASOPHILS % (AUTO) 0.2 % (0.0-5.0); EOSINOPHILS % (AUTO) 0.4 % (0.0-8.0); LYMPHOCYTES % (AUTO) 9.9 % (21.0-51.0); MEAN CORPUSCULAR HEMOGLOBIN 24.4 pg (27.0-33.0); MEAN CORPUSCULAR VOLUME 76.3 fL (79-99); MONOCYTES % (AUTO) 8.7 % (3.0-13.0); NEUTROPHILS % (AUTO) 80.4 % (40.0-77.0); PLATELET COUNT (AUTO) 264 K/uL (130-400); RED BLOOD CELL COUNT(AUTO) 3.93 MIL/uL (4.50-6.20); RED CELL DISTRIBUTION WIDTH 15.3 % (11.0-15.5); WHITE BLOOD COUNT (AUTO) 15.9 K/uL (4.8-10.8)
[2019-04-12] MEDS: POLYETHYLENE GLYCOL 3350 17 GM POWD.PACK PO SCH (08:08)
[2019-04-12] MEDS: VANCOMYCIN 1.25 GM in SODIUM CHLORIDE 0.9% 250 ML IV SCH (08:10)
[2019-04-12] MEDS: FAMOTIDINE 20MG TAB 20 MG TAB PO SCH ×2 (08:15→21:00)
[2019-04-12 08:18] LABS: CREATININE 1.1 mg/dL (0.5-1.5); POTASSIUM 3.5 mmol/L (3.5-5.1)
[2019-04-12] MEDS ORDERED: MEMANTINE HCL 5 MG TABLET PO SCH (09:00)
[2019-04-12] MEDS: OSELTAMIVIR PHOSPHATE 75 MG CAP PO SCH ×2 (12:19→21:50)
[2019-04-12] MEDS: DOXYCYCLINE HYCLATE 100 MG TABLET PO SCH ×2 (12:19→23:02)
[2019-04-12] MEDS: MEROPENEM 1 GM VIAL IVP SCH ×2 (12:20→18:44)
[2019-04-12] MEDS: ACETAMINOPHEN 325 MG TAB PO PRN (21:57)
[2019-04-13] MEDS: MEROPENEM 1 GM VIAL IVP SCH ×3 (03:12→18:35)
[2019-04-13 03:55] VITALS: BP 127/71
[2019-04-13 05:33] LABS: CREATININE 1.1 mg/dL (0.5-1.5); POTASSIUM 3.7 mmol/L (3.5-5.1)
[2019-04-13] MEDS: SODIUM CHLORIDE 0.9% 1000ML 1,000 ML IV SCH ×2 (06:27→18:35)
[2019-04-13] MEDS: HYDROMORPHONE HCL 0.5 MG/0.5 ML ML IVP PRN ×5 (07:33→23:57)
[2019-04-13 08:00] VITALS: BP 132/70
[2019-04-13] MEDS: FAMOTIDINE 20MG TAB 20 MG TAB PO SCH ×2 (09:00→20:02)
[2019-04-13] MEDS: POLYETHYLENE GLYCOL 3350 17 GM POWD.PACK PO SCH (09:23)
[2019-04-13] MEDS: DOXYCYCLINE HYCLATE 100 MG TABLET PO SCH ×2 (10:57→22:06)
[2019-04-13] MEDS: OSELTAMIVIR PHOSPHATE 75 MG CAP PO SCH ×2 (10:57→22:06)
[2019-04-13 12:00] VITALS: BP 136/67
[2019-04-13] MEDS: ACETAMINOPHEN 325 MG TAB PO PRN (15:57)
[2019-04-13 16:00] VITALS: BP 136/69
[2019-04-13 19:41] VITALS: BP 121/69
[2019-04-13 23:59] VITALS: BP 143/72
[2019-04-14] MEDS: MEROPENEM 1 GM VIAL IVP SCH ×3 (03:06→16:57)
[2019-04-14 03:42] VITALS: BP 140/70
[2019-04-14] MEDS: HYDROMORPHONE HCL 0.5 MG/0.5 ML ML IVP PRN ×5 (04:03→21:26)
[2019-04-14 05:01] LABS: BASOPHILS % (AUTO) 0.4 % (0.0-5.0); EOSINOPHILS % (AUTO) 1.1 % (0.0-8.0); HEMATOCRIT 26.6 % (42-54); LYMPHOCYTES % (AUTO) 13.3 % (21.0-51.0); MEAN CORPUSCULAR HGB CONC 32.3 g/dL (32.0-36.0); MEAN CORPUSCULAR VOLUME 74.3 fL (79-99); MONOCYTES % (AUTO) 8.9 % (3.0-13.0); NEUTROPHILS % (AUTO) 75.6 % (40.0-77.0); PLATELET COUNT (AUTO) 317 K/uL (130-400); RED BLOOD CELL COUNT(AUTO) 3.58 MIL/uL (4.50-6.20); RED CELL DISTRIBUTION WIDTH 15.1 % (11.0-15.5); WHITE BLOOD COUNT (AUTO) 11.6 K/uL (4.8-10.8)
[2019-04-14 05:15] LABS: POTASSIUM 3.6 mmol/L (3.5-5.1)
[2019-04-14] MEDS: SODIUM CHLORIDE 0.9% 1000ML 1,000 ML IV SCH ×3 (06:05→23:36)
[2019-04-14 08:00] VITALS: BP 121/67
[2019-04-14] MEDS: FAMOTIDINE 20MG TAB 20 MG TAB PO SCH ×2 (08:22→21:00)
[2019-04-14] MEDS: POLYETHYLENE GLYCOL 3350 17 GM POWD.PACK PO SCH (08:23)
[2019-04-14] MEDS: OSELTAMIVIR PHOSPHATE 75 MG CAP PO SCH ×2 (08:23→23:36)
--- NOTE | 2019-04-14 09:53 | NUR ---
DR IBARRA CONSULT SPOKE TO CHRIS AT DR IBARRA OFFICE STATED DR IBARRA IS AWARE OF CONSULT AND SHE WILL SPEAK WITH HIM AND CALL ME BACK
[2019-04-14 11:32] VITALS: BP 131/71
--- NOTE | 2019-04-14 11:54 | NUR ---
RECEIVED CALL BACK FROM DR IBARRA OFFICE SPOKE TO FAROOQ AT DR IBARRA OFFICE AND SHE STATED DR IBARRA WILL NOT SEE PATIENT DUE TO INABILITY TO PROVIDE CARE R/T MASS SIZE. HOSPITALISTS MADE AWARE
[2019-04-14] MEDS: DOXYCYCLINE HYCLATE 100 MG TABLET PO SCH ×2 (12:29→23:36)
[2019-04-14 16:00] VITALS: BP 130/71
[2019-04-14] MEDS: TAMSULOSIN HCL 0.4 MG CAP.ER.24H PO SCH (16:12)
--- NOTE | 2019-04-14 16:20 | NUR ---
SALVADOR REMOVED 16FR SALVADOR REMOVED PER MD ORDER. PT WITH MINIMAL DISCOMFORT. DTV: [phone]
[2019-04-14 19:15] VITALS: BP 129/68
[2019-04-14] MEDS: ACETAMINOPHEN 325 MG TAB PO PRN (20:08)
[2019-04-14] MEDS: MORPHINE SULFATE 2 MG/ML 1ML SYG IVP PRN (20:12)
[2019-04-14 23:41] VITALS: BP 110/61
[2019-04-15] MEDS: MEROPENEM 1 GM VIAL IVP SCH ×3 (02:56→20:49)
[2019-04-15] MEDS: HYDROMORPHONE HCL 0.5 MG/0.5 ML ML IVP PRN ×5 (03:05→20:50)
[2019-04-15 03:31] VITALS: BP 123/49
[2019-04-15 05:02] LABS: BASOPHILS % (AUTO) 0.4 % (0.0-5.0); EOSINOPHILS % (AUTO) 2.2 % (0.0-8.0); HEMATOCRIT 28.4 % (42-54); LYMPHOCYTES % (AUTO) 15.3 % (21.0-51.0); MEAN CORPUSCULAR HEMOGLOBIN 23.3 pg (27.0-33.0); MEAN CORPUSCULAR VOLUME 75.3 fL (79-99); MONOCYTES % (AUTO) 9.7 % (3.0-13.0); NEUTROPHILS % (AUTO) 71.6 % (40.0-77.0); PLATELET COUNT (AUTO) 390 K/uL (130-400); RED BLOOD CELL COUNT(AUTO) 3.77 MIL/uL (4.50-6.20); RED CELL DISTRIBUTION WIDTH 15.1 % (11.0-15.5); WHITE BLOOD COUNT (AUTO) 11.3 K/uL (4.8-10.8)
[2019-04-15 05:33] LABS: POTASSIUM 3.6 mmol/L (3.5-5.1)
[2019-04-15 08:00] VITALS: BP 121/66
[2019-04-15] MEDS: POLYETHYLENE GLYCOL 3350 17 GM POWD.PACK PO SCH (08:15)
[2019-04-15] MEDS: TAMSULOSIN HCL 0.4 MG CAP.ER.24H PO SCH (08:15)
[2019-04-15] MEDS: OSELTAMIVIR PHOSPHATE 75 MG CAP PO SCH ×2 (08:15→23:43)
[2019-04-15] MEDS: FAMOTIDINE 20MG TAB 20 MG TAB PO SCH ×2 (08:16→21:00)
[2019-04-15] MEDS: SODIUM CHLORIDE 0.9% 1000ML 1,000 ML IV SCH (11:40)
[2019-04-15 12:00] VITALS: BP 128/68
[2019-04-15] MEDS: DOXYCYCLINE HYCLATE 100 MG TABLET PO SCH ×2 (12:48→23:43)
[2019-04-15 16:00] VITALS: BP 130/63
--- NOTE | 2019-04-15 17:07 | NUR ---
DCP NOTE Dr. Bolanos asked SW to pharmaceutical representative from [employer] to come and speak to patient about status regarding benefits. stated that patient will need chemotherapy once discharged from hospital. Tristen Mao, [employer] Integrated Logistics Support Manager informed SW that patient was a legal resident that did not have enough work quarters to be eligible for benefits. Tristen stated that he would go and inform patient of status. SW informed Tara SRINIVASAN. MD will be made aware. SW will follow up with patient and assist as needed.
[2019-04-15 20:00] VITALS: BP 127/63
[2019-04-16] VITALS: BP 153/71
[2019-04-16] MEDS: HYDROMORPHONE HCL 0.5 MG/0.5 ML ML IVP PRN ×2 (01:21→05:13)
[2019-04-16] MEDS: MEROPENEM 1 GM VIAL IVP SCH ×2 (03:54→12:28)
[2019-04-16] MEDS: SODIUM CHLORIDE 0.9% 1000ML 1,000 ML IV SCH (03:54)
[2019-04-16 04:00] VITALS: BP 119/61
[2019-04-16 08:00] VITALS: BP 128/63
--- NOTE | 2019-04-16 08:10 | NUR ---
AAOX3. DENIES PAIN BUT REPORTS ACTIVE DISCOMFORT AT THIS TIME. HE UNDERWENT RIGHT KIDNEY EMBOLIZATION PART OF TREATMENT FOR RIGHT KIDNEY MASS. HE ALSO HAD KIDNEY MASS BIOPSY WITH RESULTS POSITIVE FOR MALIGNANCY. HE IS BEING FOLLOWED PER DR HENDERSON. INITIALLY CAME IN WITH HEMATURIA BUT HAD F/C FOR A FEW DAYS AND BLOOD IN URINE SUBSIDED. POSSIBLE DC HOME TODAY. HAD BEEN HAVING FEVER ON AND OFF BUT HAS HAD 2 BLOOD CULTURES AND URINE CULTURES NEGATIVE FOR INFECTION AND ALSO REPORTED FROM MD NOTES WAS POSITIVE FOR PNEUMONIA. HE CONTINUES ON TAMIFLU THOUGH HIS FLU SWAB WAS NEGATIVE FOR FLU BUT CONTINUED WITH FEBRILE EPISODES LAST ONE 100.1 LAST NIGHT.
[2019-04-16] MEDS ORDERED: ACETAMINOPHEN-CODEINE 300/30MG TAB ONE ×2 (09:13→17:50)
[2019-04-16] MEDS: POLYETHYLENE GLYCOL 3350 17 GM POWD.PACK PO SCH (09:16)
[2019-04-16] MEDS: FAMOTIDINE 20MG TAB 20 MG TAB PO SCH (09:16)
[2019-04-16] MEDS: TAMSULOSIN HCL 0.4 MG CAP.ER.24H PO SCH (09:17)
[2019-04-16] MEDS ORDERED: TAMS-1 PO (11:10)
[2019-04-16 11:26] VITALS: BP 126/63
[2019-04-16] MEDS: OSELTAMIVIR PHOSPHATE 75 MG CAP PO SCH (12:28)
[2019-04-16] MEDS: DOXYCYCLINE HYCLATE 100 MG TABLET PO SCH (12:28)
--- NOTE | 2019-04-16 14:00 | NUR ---
NOTE DR EID ROUNDED AND GAVE STATES PATIENT CAN BE DC'D WITH ABX. HE WROTE RX. DR HENDERSON CAME BY WELL AND ALSO GAVE ORDERS FOR F/U AT HIS OFFICE NEXT WEEK FOR TREATMENTS TO BEGIN FOR RENAL CELL CARCINOMA.
[2019-04-16 16:00] VITALS: BP 129/65
--- NOTE | 2019-04-16 18:30 | NUR ---
NOTE DISCHARGE INSTRUCTIONS GIVEN TO PATIENT AT THIS TIME. VERBALIZED UNDERSTANDING. REFER TO DC SUMMARY FOR DETAILS.
== END 2019-04-16 18:40 | disposition home or self-care (01) | DRG 853 ==
LOC: EDH 18:36 → EDHIP 18:37 → 3DH 04-06 00:04
PROVIDERS: ADMIT Hospitalist; ATTEND Hospitalist
PROC: 0T7D3ZZ Dilation of Urethra, Percutaneous Approach (ICD-10-PCS; principal; 2019-04-05)
PROC: 0TB03ZX Excision of Right Kidney, Percutaneous Approach, Diagnostic (ICD-10-PCS; 2019-04-07)
PROC: 04L93DZ Occlusion of Right Renal Artery with Intraluminal Device, Percutaneous Approach (ICD-10-PCS; 2019-04-08)
PROC: B4161ZZ Fluoroscopy of Right Renal Artery using Low Osmolar Contrast (ICD-10-PCS; 2019-04-08)
DX: A41.9 Sepsis, unspecified organism (principal); J18.9 Pneumonia, unspecified organism; C64.1 Malignant neoplasm of right kidney, except renal pelvis; C79.51 Secondary malignant neoplasm of bone; J90 Pleural effusion, not elsewhere classified; N35.919 Unspecified urethral stricture, male, unspecified site; R31.0 Gross hematuria; Z68.30 Body mass index [BMI] 30.0-30.9, adult; Y95 Nosocomial condition; D64.9 Anemia, unspecified; E11.9 Type 2 diabetes mellitus without complications; E66.9 Obesity, unspecified; I10 Essential (primary) hypertension; M47.815 Spondylosis without myelopathy or radiculopathy, thoracolumbar region; N28.82 Megaloureter; R33.8 Other retention of urine
CPT/HCPCS: 36251; 36415; 37243; 50200; 71045; 71250; 74150; 74176; 74177; 76770; 77012; 78306; 80048; 80053; 80202; 81001; 83036; 83605; 83735; 84145; 85014; 85018; 85025; 85610; 85730; 87040; 87088; 87804; 88305; 93005; 99152; 99153; 99156; 99157; A9503; C1760; C1769; C1894; G0378; J0696; J1170; J1644; J2185; J2250; J2270; J2405; J2543; J3010; J3370; J3490; J7030; Q9967

== ENCOUNTER 2019-11-11 21:13 | Inpatient (IN) | payer MEDICAID ==
[~2019-11-11] VITALS: Ht 165.1 cm; Wt 73.5 kg
[~2019-11-11 21:13] MED LIST changes: -CEFD300C3 PO; -FERR324T4 PO; +TAMS-1 PO
[2019-11-11 21:47] LABS: BASOPHILS % (AUTO) 0.3 % (0.0-5.0); EOSINOPHILS % (AUTO) 0.3 % (0.0-8.0); LYMPHOCYTES % (AUTO) 9.4 % (21.0-51.0); MEAN CORPUSCULAR HEMOGLOBIN 26.6 pg (27.0-33.0); MEAN CORPUSCULAR HGB CONC 32.6 g/dL (32.0-36.0); MEAN CORPUSCULAR VOLUME 81.8 fL (79-99); MONOCYTES % (AUTO) 7.7 % (3.0-13.0); NEUTROPHILS % (AUTO) 80.7 % (40.0-77.0); PLATELET COUNT (AUTO) 380 K/uL (130-400); RED BLOOD CELL COUNT(AUTO) 4.77 MIL/uL (4.50-6.20); RED CELL DISTRIBUTION WIDTH 13.6 % (11.0-15.5); WHITE BLOOD COUNT (AUTO) 15.3 K/uL (4.8-10.8)
[2019-11-11] MEDS ORDERED: MAG HYDROX/AL HYDROX/SIMETH ES 30 ML SUSP UDCUP ONE (21:54)
[2019-11-11] MEDS ORDERED: LIDOCAINE HCL 2% VISCOUS 15 ML UDCUP ONE (21:54)
[2019-11-11] MEDS ORDERED: DiphenhydrAMINE HCL 25 MG/10 ML ELIXIR UDCUP ONE (21:54)
[2019-11-11 21:58] LABS: CREATININE 1.1 mg/dL (0.5-1.5); POTASSIUM 4.1 mmol/L (3.5-5.1)
[2019-11-11 22:05] LABS: BILIRUBIN,TOTAL 0.5 mg/dL (0.2-1.0); TOTAL PROTEIN, SERUM 7.4 g/dL (6.0-8.3)
[2019-11-11] MEDS ORDERED: SODIUM CHLORIDE 0.9% 100 ML IV ONE (22:44)
[2019-11-11] MEDS ORDERED: CEFTRIAXONE SODIUM 1 GM ONE (22:44)
[2019-11-12] MEDS ORDERED: ACYCLOVIR 200 MG CAPSULE ONE (00:20)
[2019-11-12 01:00] LABS: BILIRUBIN,URINE Negative (NEGATIVE); COLOR,URINE Yellow (YELLOW); GLUCOSE, URINE (UA) Negative (NEGATIVE); KETONES,URINE 15 mg/dL (NEGATIVE); LEUKOCYTE ESTERASE ,URINE Negative (NEGATIVE); NITRATE,URINE Negative (NEGATIVE); OCCULT BLOOD,URINE Negative (NEGATIVE); PROTEIN,URINE POS 2+ mg/dL (NEGATIVE)
[2019-11-12 01:12] LABS: APPEARANCE,URINE CLEAR (CLEAR)
[2019-11-12] MEDS ORDERED: AMPICILLIN SODIUM/SULBACTAM NA 1.5GM VIAL ONE ×2 (04:46→09:27)
[2019-11-12] MEDS ORDERED: SODIUM CHLORIDE 0.9% 100 ML IV ONE ×2 (04:46→09:28)
[2019-11-12] MEDS ORDERED: SODIUM CHLORIDE 0.9% 1000ML 1,000 ML IV SCH (05:55)
[2019-11-12] MEDS ORDERED: GUAIFENESIN-DM 200/20 MG 10 ML PO PRN (06:00)
[2019-11-12] MEDS ORDERED: DIPHENHYDRAMINE HCL 25 MG CAPSULE PO PRN (06:00)
[2019-11-12] MEDS ORDERED: ACETAMINOPHEN 325 MG TAB PO PRN ×2 (06:00)
[2019-11-12] MEDS: ACYCLOVIR SODIUM 500 MG VIAL 500 MG in SODIUM CHLORIDE 0.9% 100 ML IV SCH ×3 (06:00→23:36)
[2019-11-12] MEDS ORDERED: NITROGLYCERIN 0.4 MG SL TAB SL PRN (06:00)
[2019-11-12] MEDS ORDERED: ZOLPIDEM TARTRATE 5 MG TAB PO PRN (06:00)
[2019-11-12] MEDS ORDERED: MAG HYDROX/AL HYDROX/SIMETH ES 30 ML SUSP UDCUP PO PRN (06:00)
[2019-11-12] MEDS ORDERED: ONDANSETRON HCL 4 MG/2 ML VIAL IV PRN (06:00)
[2019-11-12] MEDS ORDERED: DiphenhydrAMINE HCL 50 MG/ML VIAL IV PRN (06:00)
[2019-11-12] MEDS ORDERED: LACTULOSE 20 GM/30 ML UDCUP PO PRN (06:00)
[2019-11-12] MEDS ORDERED: MORPHINE SULFATE 4 MG/1ML SYG IV PRN (06:30)
[2019-11-12] MEDS ORDERED: MORPHINE SULFATE 2 MG/ML 1ML SYG IVP PRN (06:30)
[2019-11-12] MEDS ORDERED: UNASYN 3GM+NS 100ML 100 ML IV SCH (06:30)
[2019-11-12 07:06] LABS: BASOPHILS % (AUTO) 0.3 % (0.0-5.0); EOSINOPHILS % (AUTO) 0.5 % (0.0-8.0); HEMATOCRIT 32.4 % (42-54); LYMPHOCYTES % (AUTO) 10.6 % (21.0-51.0); MEAN CORPUSCULAR HEMOGLOBIN 26.7 pg (27.0-33.0); MEAN CORPUSCULAR HGB CONC 32.7 g/dL (32.0-36.0); MEAN CORPUSCULAR VOLUME 81.6 fL (79-99); MONOCYTES % (AUTO) 10.5 % (3.0-13.0); NEUTROPHILS % (AUTO) 76.6 % (40.0-77.0); PLATELET COUNT (AUTO) 279 K/uL (130-400); RED BLOOD CELL COUNT(AUTO) 3.97 MIL/uL (4.50-6.20); RED CELL DISTRIBUTION WIDTH 13.6 % (11.0-15.5)
[2019-11-12] MEDS ORDERED: MORPHINE SULFATE 4 MG/1ML SYG ONE ×2 (07:41→13:46)
[2019-11-12 08:19] LABS: ALBUMIN 2.4 g/dL (3.5-5.0); BILIRUBIN,TOTAL 0.3 mg/dL (0.2-1.0); CREATININE 0.9 mg/dL (0.5-1.5); MAGNESIUM 1.5 mg/dL (1.80-2.40); PHOSPHORUS 3.9 mg/dL (2.5-4.9); POTASSIUM 4.1 mmol/L (3.5-5.1); TOTAL PROTEIN, SERUM 5.6 g/dL (6.0-8.3)
[2019-11-12] MEDS ORDERED: COMPOUND PO MISCELLANEOUS 1 EACH MISC MISC PRN (08:30)
[2019-11-12] MEDS: UNASYN 3GM+NS 100ML 100 ML IV SCH ×2 (14:00→18:34)
--- NOTE | 2019-11-12 14:40 | NUR ---
CM NOTE/IA UNABLE TO MEET WITH PATIENT, NEXT OF KIN CALLED, VISHNU SINHA. PER FRIEND, PATIENT IS DEPENDENT WITH ADLS, LIVES ALONE, HAS USE OF CANE, HAS PROVIDER SERVICES FROM [facility] 19HR PER WEEK, WELL USE OF [facility] ON [address]. CM TO FOLLOW UP WITH NEEDS. Addendum: 11/13/19 at 9572 by COREY SPENCE RN CM Amended: Links added.
[2019-11-12 15:05] VITALS: BP 133/60
--- NOTE | 2019-11-12 17:58 | NUR ---
Rec'd hard copy of orders entered by Dr. Mel Hernández on 11/10 @ 6545 labelled "orders entered on wrong account #". Audited chart for verification, noted some orders were re-entered at 0616, but some missing on current account. Clarified w PLANT ANATOMIST Ivone Darby that pt is to be on Tessalon, Lovenox, Pepcid. Ordering comment beneath Acyclovir states that dexamethasone, ceftriaxone, and vancomycin should also be administered, however none of these are profiled on pt's emar. Call placed to pharmacist Vikash who confirmed that this comment was entered by , not a routine pharmacy protocol. Spoke to Damien Darby about this as well. She stated she will clarify with Dr. Hernández when he arrives for his shift at 6pm and he will enter appropriate orders.
[2019-11-12] MEDS ORDERED: BENZONATATE 100 MG CAPSULE PO PRN (18:30)
--- NOTE | 2019-11-12 19:35 | NUR ---
PER TELEMETRY, PATIENT IN AFIB RVR UP TO 190'S. NURSE WALKED IN ROOM TO FIND PATIENT ASYMPTOMATIC, COMING BACK FROM REST ROOM. PATIENT DENIES CHEST PAIN/PALPITATIONS OR ANY OTHER DISCOMFORT AND DENIES HX OF CARDIAC ARRHYTHMIAS. B/P 113/79, CURRENTLY P 120'S, O2 SAT 95% AT ROOM AIR. PER TELEMETRY, CURRENTLY SINUS TACHY 110'S-120'S, UNSUSTAINED AFIB RVR LASTED LESS THAN 2 MINUTES. WILL CONTINUE TO MONITOR.
[2019-11-12 19:40] VITALS: BP 124/75
[2019-11-12] MEDS: FAMOTIDINE/PF 20 MG/2 ML VIAL IV SCH (20:03)
[2019-11-12] MEDS: LIDOCAINE HCL 2% VISCOUS 30 ML, MAG HYDROX/AL HYDROX/SIMETH 30 ML, DICYCLOMINE HCL 20 MG PO PRN ×3 (20:04)
[2019-11-12] MEDS ORDERED: MAGNESIUM 2GM PREMIX 50ML 50 ML IV ONE (21:30)
[2019-11-12] MEDS ORDERED: SODIUM CHLORIDE 0.9% 250 ML IV ONE (21:30)
[2019-11-12 23:54] VITALS: BP 139/77
[2019-11-13 03:42] VITALS: BP 130/74
[2019-11-13 04:34] LABS: BASOPHILS % (AUTO) 0.3 % (0.0-5.0); EOSINOPHILS % (AUTO) 1.3 % (0.0-8.0); HEMATOCRIT 32.8 % (42-54); LYMPHOCYTES % (AUTO) 8.9 % (21.0-51.0); MEAN CORPUSCULAR HEMOGLOBIN 26.8 pg (27.0-33.0); MEAN CORPUSCULAR HGB CONC 32.6 g/dL (32.0-36.0); MEAN CORPUSCULAR VOLUME 82.2 fL (79-99); MONOCYTES % (AUTO) 9.1 % (3.0-13.0); NEUTROPHILS % (AUTO) 79.1 % (40.0-77.0); PLATELET COUNT (AUTO) 299 K/uL (130-400); RED BLOOD CELL COUNT(AUTO) 3.99 MIL/uL (4.50-6.20); RED CELL DISTRIBUTION WIDTH 13.4 % (11.0-15.5)
[2019-11-13 04:53] LABS: INR 1.18 (0.85-1.15); PROTHROMBIN TIME 12.7 SEC (9.6-11.6)
[2019-11-13 04:55] LABS: ALBUMIN 2.4 g/dL (3.5-5.0); BILIRUBIN,TOTAL 0.4 mg/dL (0.2-1.0); CREATININE 0.6 mg/dL (0.5-1.5); MAGNESIUM 1.9 mg/dL (1.80-2.40); PHOSPHORUS 3.1 mg/dL (2.5-4.9); POTASSIUM 3.5 mmol/L (3.5-5.1); TOTAL PROTEIN, SERUM 6.2 g/dL (6.0-8.3)
[2019-11-13] MEDS: ACYCLOVIR SODIUM 500 MG VIAL 500 MG in SODIUM CHLORIDE 0.9% 100 ML IV SCH ×3 (06:35→23:20)
[2019-11-13] MEDS: LIDOCAINE HCL 2% VISCOUS 30 ML, MAG HYDROX/AL HYDROX/SIMETH 30 ML, DICYCLOMINE HCL 20 MG PO PRN ×3 (06:40)
--- NOTE | 2019-11-13 07:15 | NUR ---
PER TELEMETRY, DURING THE NIGHT PATIENT HAD EPISODES OF UNSUSTAINED EPISODES OF AFIB W/RVR 180'S-200'S LESS THAN A MINUTE. WALKED IN TO PATIENT'S ROOM TO FIND HIM SITTING IN BED, ASYMPTOMATIC, STATES HE JUST RETURNED BACK FROM THE REST ROOM. INSTRUCTED TO PLEASE STAY IN BED UNTIL MD IS MADE AWARE OF PERSISTENT, INTERMITTENT AFIB W/RVR AND GIVES FURTHER ORDERS, PATIENT VOICED UNDERSTANDING. REPORT GIVEN TO INCOMING DAY SHIFT NURSE. DR. MONTGOMERY WAS PAGED, PENDING TO CALL BACK.
[2019-11-13 08:00] VITALS: BP 128/77
[2019-11-13] MEDS ORDERED: ENOXAPARIN SODIUM 40 MG/0.4 ML SYRINGE SQ SCH (09:00)
[2019-11-13] MEDS ORDERED: METOPROLOL TARTRATE 50 MG TAB ONE (10:08)
[2019-11-13] MEDS: FAMOTIDINE/PF 20 MG/2 ML VIAL IV SCH ×2 (10:10→20:27)
[2019-11-13 12:00] VITALS: BP 128/80
[2019-11-13] MEDS: NYSTATIN 100000 UNIT/ML 5ML UDCUP PO SCH ×3 (12:45→20:27)
[2019-11-13] MEDS ORDERED: IOHEXOL-350 75 ML VIAL IV ONE (12:52)
[2019-11-13] MEDS ORDERED: UNASYN 3GM+NS 100ML 100 ML IV SCH ×2 (13:00→20:30)
[2019-11-13] MEDS ORDERED: COMPOUND IV MISC 1 EACH IVSOLN MISC PRN (14:30)
[2019-11-13] MEDS: CLOTRIMAZOLE 10 MG TROCHE MM SCH ×2 (15:12→18:33)
[2019-11-13 16:00] VITALS: BP 125/73
--- NOTE | 2019-11-13 20:09 | NUR ---
PULMONARY CONSULT NEW ORDER PLACED TO CONSULT DR. HAMM FOR LUNG MASS. WAS MADE AWARE OF CONSULT AND STATED WOULD SEE PATIENT TOMORROW(11/14/19).
[2019-11-13 20:14] VITALS: BP 135/79
[2019-11-13] MEDS: METOPROLOL TARTRATE 50 MG TAB PO SCH (20:27)
[2019-11-13] MEDS ORDERED: APIXABAN 5 MG TABLET PO SCH (21:00)
[2019-11-13 23:58] VITALS: BP 130/81
[2019-11-14] MEDS: CLOTRIMAZOLE 10 MG TROCHE MM SCH ×3 (00:58→13:05)
[2019-11-14 04:06] VITALS: BP 134/81
[2019-11-14] MEDS: ACYCLOVIR SODIUM 500 MG VIAL 500 MG in SODIUM CHLORIDE 0.9% 100 ML IV SCH ×2 (06:16→13:18)
[2019-11-14 06:24] LABS: BASOPHILS % (AUTO) 0.2 % (0.0-5.0); EOSINOPHILS % (AUTO) 1.1 % (0.0-8.0); HEMATOCRIT 32.9 % (42-54); LYMPHOCYTES % (AUTO) 9.2 % (21.0-51.0); MEAN CORPUSCULAR HEMOGLOBIN 26.8 pg (27.0-33.0); MEAN CORPUSCULAR HGB CONC 33.1 g/dL (32.0-36.0); MONOCYTES % (AUTO) 9.8 % (3.0-13.0); PLATELET COUNT (AUTO) 300 K/uL (130-400); RED BLOOD CELL COUNT(AUTO) 4.06 MIL/uL (4.50-6.20); RED CELL DISTRIBUTION WIDTH 13.4 % (11.0-15.5); WHITE BLOOD COUNT (AUTO) 12.2 K/uL (4.8-10.8)
[2019-11-14 06:42] LABS: ALBUMIN 2.3 g/dL (3.5-5.0); BILIRUBIN,TOTAL 0.5 mg/dL (0.2-1.0); CREATININE 0.7 mg/dL (0.5-1.5); MAGNESIUM 1.6 mg/dL (1.80-2.40); PHOSPHORUS 3.4 mg/dL (2.5-4.9); POTASSIUM 3.3 mmol/L (3.5-5.1)
--- NOTE | 2019-11-14 06:48 | NUR ---
LORI ARREDONDO WAS NOTIFIED OF PATIENT'S ONE MINUTE RUN OF RVR WITH HEART RATE IN 200'S; ALSO MADE AWARE OF DR. GILES NEW ORDERS.
[2019-11-14 08:00] VITALS: BP 131/80
[2019-11-14] MEDS: FAMOTIDINE/PF 20 MG/2 ML VIAL IV SCH (08:06)
[2019-11-14] MEDS: METOPROLOL TARTRATE 50 MG TAB PO SCH (08:07)
[2019-11-14] MEDS: NYSTATIN 100000 UNIT/ML 5ML UDCUP PO SCH ×3 (08:08→17:20)
[2019-11-14] MEDS ORDERED: ENOXAPARIN SODIUM 40 MG/0.4 ML SYRINGE SQ SCH (09:00)
[2019-11-14 11:00] VITALS: BP 128/72
--- NOTE | 2019-11-14 16:00 | NUR ---
NO NEED FOR HOME O2 ON THIS ADMIT FOLLOW UP WITH ONCOLOGIST SANTIAGO SARAVIA Addendum: 11/14/19 at 1903 by NED SANCHEZ RN CM Amended: Links added.
[2019-11-14 16:22] VITALS: BP 129/82
[2019-11-14] MEDS ORDERED: VALA10002 PO (17:15)
[2019-11-14] MEDS ORDERED: ONDA4TAB4 PO (17:16)
--- NOTE | 2019-11-14 17:38 | NUR ---
INSTRUCTIONS DISCHARGE INSTRUCTIONS GIVEN TO PATIENT USING TEACH BACK. NEW PRESCRIPTIONS ELECTRONICALLY SENT TO PATIENT'S PREFERRED PHARMACY. IV HAS BEEN REMOVED WITH TIP INTACT. DIRECT PRESSURE APPLIED UNTIL BLEEDING CONTROLLED THEN SITE COVERED WITH GAUZE AND SECURED WITH A BAND-AID. NO QUESTIONS OR CONCERNS VOICED. PENDING RIDE HOME.
[2019-11-15 12:10] LABS: HERPES SIMPLEX VIRUS-1 BY PCR Negative (Negative); HERPES SIMPLEX VIRUS-2 BY PCR Negative (Negative)
== END 2019-11-14 18:10 | disposition home or self-care (01) | DRG 720 ==
LOC: EDH 21:13 → EDHIP 21:14 → 3CH 11-12 16:51
PROVIDERS: ADMIT Internal Medicine; ATTEND Internal Medicine
DX: A41.9 Sepsis, unspecified organism (principal); C64.1 Malignant neoplasm of right kidney, except renal pelvis; B00.2 Herpesviral gingivostomatitis and pharyngotonsillitis; D64.9 Anemia, unspecified; C78.00 Secondary malignant neoplasm of unspecified lung; C78.1 Secondary malignant neoplasm of mediastinum; D68.69 Other thrombophilia; E11.9 Type 2 diabetes mellitus without complications; E83.42 Hypomagnesemia; E87.6 Hypokalemia; I48.0 Paroxysmal atrial fibrillation; N40.0 Benign prostatic hyperplasia without lower urinary tract symptoms; R13.11 Dysphagia, oral phase; K22.2 Esophageal obstruction; Y92.89 Other specified places as the place of occurrence of the external cause; T45.1X5A Adverse effect of antineoplastic and immunosuppressive drugs, initial encounter; Z79.899 Other long term (current) drug therapy; Z80.9 Family history of malignant neoplasm, unspecified; Z85.528 Personal history of other malignant neoplasm of kidney; Z92.3 Personal history of irradiation; Z20.828 Contact with and (suspected) exposure to other viral communicable diseases
CPT/HCPCS: 36415; 71045; 71275; 80053; 81003; 83605; 83735; 84100; 84145; 84443; 85025; 85610; 86308; 87040; 87071; 87205; 87486; 87529; 87581; 87633; 87798; 87880; 93005; 93306; 93356; 94760; 99291; G0378; J0133; J0295; J0696; J1650; J2270; J3475; J3490; J7050; Q0163; Q9967

== ENCOUNTER 2019-11-23 10:37 | Inpatient (IN) | payer MEDICAID ==
[~2019-11-23] VITALS: Ht 172.7 cm; Wt 72.7 kg
[~2019-11-23 10:37] MED LIST changes: +ONDA4TAB4 PO; +VALA10002 PO
[2019-11-23] MEDS ORDERED: SODIUM CHLORIDE 0.9% 1000ML 1,000 ML IV ONE (11:16)
[2019-11-23 12:00] LABS: BASOPHILS % (AUTO) 0.8 % (0.0-5.0); EOSINOPHILS % (AUTO) 0.2 % (0.0-8.0); HEMATOCRIT 37.6 % (42-54); LYMPHOCYTES % (AUTO) 6.9 % (21.0-51.0); MEAN CORPUSCULAR HEMOGLOBIN 25.8 pg (27.0-33.0); MEAN CORPUSCULAR HGB CONC 32.2 g/dL (32.0-36.0); MEAN CORPUSCULAR VOLUME 80.2 fL (79-99); MONOCYTES % (AUTO) 7.6 % (3.0-13.0); NEUTROPHILS % (AUTO) 78.4 % (40.0-77.0); PLATELET COUNT (AUTO) 319 K/uL (130-400); RED BLOOD CELL COUNT(AUTO) 4.69 MIL/uL (4.50-6.20); RED CELL DISTRIBUTION WIDTH 14.2 % (11.0-15.5); WHITE BLOOD COUNT (AUTO) 16.1 K/uL (4.8-10.8)
[2019-11-23] MEDS ORDERED: TETRACAINE HCL 0.5% 4 ML OPHTH SOLN ONE (12:12)
[2019-11-23 12:31] LABS: INR 2.43 (0.85-1.15); PARTIAL THROMBOPLASTIN TIME 36.2 SEC (26.3-35.5); PROTHROMBIN TIME 25.4 SEC (9.6-11.6)
[2019-11-23 12:51] LABS: ALBUMIN 2.2 g/dL (3.5-5.0); BILIRUBIN,TOTAL 0.6 mg/dL (0.2-1.0); CREATININE 0.7 mg/dL (0.5-1.5); POTASSIUM 3.8 mmol/L (3.5-5.1); TOTAL PROTEIN, SERUM 6.1 g/dL (6.0-8.3)
[2019-11-23] MEDS ORDERED: ACETAMINOPHEN 325 MG TAB PO PRN ×2 (13:45)
[2019-11-23] MEDS ORDERED: ONDANSETRON HCL 4 MG/2 ML VIAL IV PRN (13:45)
[2019-11-23] MEDS ORDERED: LACTULOSE 20 GM/30 ML UDCUP PO PRN (13:45)
[2019-11-23] MEDS: AZITHROMYCIN 500MG+NS 250ML 250 ML IV SCH (14:00)
[2019-11-23] MEDS: CEFTRIAXONE SODIUM 1 GM IVP SCH (14:00)
[2019-11-23] MEDS ORDERED: AZITHROMYCIN 500MG+NS 250ML 250 ML IV ONE (14:43)
[2019-11-23] MEDS ORDERED: CEFTRIAXONE SODIUM 1 GM ONE (14:43)
[2019-11-23] MEDS ORDERED: FAMOTIDINE 20MG TAB 20 MG TAB ONE (19:27)
--- NOTE | 2019-11-23 19:31 | NUR ---
paged doctor debora, oncology, for patient's consult.
[2019-11-23] MEDS: ERYTHROMYCIN BASE 0.5% OPHTH OINT 1 GM TUBE OU SCH ×2 (19:53→23:30)
[2019-11-23] MEDS: FAMOTIDINE 20MG TAB 20 MG TAB PO SCH (19:53)
[2019-11-23 20:34] VITALS: BP 104/66
--- NOTE | 2019-11-23 21:23 | NUR ---
PENDING DOCTOR NATANAEL CALL BACK. I TEXTED DOCTOR DENTON ABOUT PATIENT'S CONSULT. HE TEXTED BACK AWARE.
[2019-11-23 23:44] VITALS: BP 121/66
[2019-11-24 03:46] VITALS: BP 105/64
[2019-11-24] MEDS: ERYTHROMYCIN BASE 0.5% OPHTH OINT 1 GM TUBE OU SCH ×3 (05:06→18:33)
[2019-11-24 05:31] LABS: BASOPHILS % (AUTO) 0.5 % (0.0-5.0); EOSINOPHILS % (AUTO) 0.2 % (0.0-8.0); LYMPHOCYTES % (AUTO) 5.8 % (21.0-51.0); MEAN CORPUSCULAR HEMOGLOBIN 25.8 pg (27.0-33.0); MEAN CORPUSCULAR HGB CONC 32.6 g/dL (32.0-36.0); MEAN CORPUSCULAR VOLUME 79.1 fL (79-99); MONOCYTES % (AUTO) 6.9 % (3.0-13.0); NEUTROPHILS % (AUTO) 80.8 % (40.0-77.0); PLATELET COUNT (AUTO) 298 K/uL (130-400); RED CELL DISTRIBUTION WIDTH 14.3 % (11.0-15.5)
--- NOTE | 2019-11-24 06:06 | NUR ---
texted annamarie head about patient's lactic acid of 2.2 this morning and wbc of 17. she replied back. she is aware.
[2019-11-24 06:16] LABS: CREATININE 0.5 mg/dL (0.5-1.5); POTASSIUM 3.4 mmol/L (3.5-5.1)
[2019-11-24] MEDS ORDERED: POTASSIUM CHLORIDE 10% ELIXIR 20 MEQ/15 ML UDCUP PO PRN (06:45)
[2019-11-24] MEDS ORDERED: LIDOCAINE HCL-MPF 1% 2ML VIAL IV PRN (06:45)
[2019-11-24] MEDS ORDERED: POTASSIUM CHLORIDE 20 MEQ ERTAB PO PRN (06:45)
[2019-11-24] MEDS ORDERED: POTASSIUM CHLORIDE 20MEQ/100ML 100 ML IV PRN (06:45)
[2019-11-24 07:30] VITALS: BP 122/62
[2019-11-24] MEDS ORDERED: METOPROLOL TARTRATE 1 MG/ML 5ML VIAL IV ONE (07:46)
--- NOTE | 2019-11-24 07:46 | NUR ---
ASSESSMENT NOTE PT. A/A X 3 , PT HAS NO CHEST PAIN, ASYMPTOMATIC, PER ESCALATOR SERVICE MECHANIC FELIPE RN, PT IS HAVING PVC, PAC, HR 180'S. ORDER IS TO DO EKG, CARDIAC PANEL, AND GIVE 5MG OF METOPROLOL IVP.
[2019-11-24] MEDS: METOPROLOL TARTRATE 1 MG/ML 5ML VIAL IV SCH ×2 (07:53→18:31)
--- NOTE | 2019-11-24 08:00 | NUR ---
ASSESSMENT NOTE PT A/A X 3,VS 65HR, B/P 122/62, RESP 20, 02SAT 95 RM. WILL CONTINUE TO MONITOR
[2019-11-24 09:00] LABS: CREATINE KINASE, TOTAL 23 U/L (21-232); MYOGLOBIN 38 ng/mL (10-92); TROPONIN I < 0.04 ng/mL (0.00-0.06)
[2019-11-24] MEDS: FAMOTIDINE 20MG TAB 20 MG TAB PO SCH ×2 (09:04→20:45)
[2019-11-24 11:00] VITALS: BP 112/70
[2019-11-24] MEDS ORDERED: MORPHINE SULFATE 2 MG/ML 1ML SYG IM PRN (12:30)
[2019-11-24] MEDS: MORPHINE SULFATE 2 MG/ML 1ML SYG IVP PRN (12:40)
--- NOTE | 2019-11-24 14:08 | NUR ---
CM NOTE/IA MEET WITH PATIENT IN ROOM. PER PATIENT, LIVES ALONE BUT HAS FRIEND, VISHNU FORREST WHO HELPS HIM WITH ADLS, IS SEMI INDEPENDENT WITH ADLS, HAS WALKER AND CANE IN USE, FRIEND DRIVES, AND FEELS SAFE TO RETURN HOME. Addendum: 11/24/19 at 1409 by COREY SPENCE RN CM Amended: Links added.
[2019-11-24] MEDS: AZITHROMYCIN 500MG+NS 250ML 250 ML IV SCH (14:57)
[2019-11-24] MEDS: CEFTRIAXONE SODIUM 1 GM IVP SCH (14:58)
[2019-11-24 16:00] VITALS: BP 95/57
--- NOTE | 2019-11-24 16:00 | NUR ---
ASSESSMENT NOTE SPOKE TO KAY ANDRADE TILE GRINDER, MADE HER AWARE PT. IS STILL HAVING MULTI PVC, HR 120'S. NO NEW ORDERS AT THIS TIME, WILL CONTINUE TO MONITOR .
[2019-11-24] MEDS ORDERED: METOPROLOL TARTRATE 1 MG/ML 5ML VIAL IV SCH (16:15)
--- NOTE | 2019-11-24 17:00 | NUR ---
IV IV INFILTRATED AND REMOVED FROM LEFT AC
[2019-11-24 17:11] LABS: CREATINE KINASE, TOTAL 37 U/L (21-232); MYOGLOBIN 51 ng/mL (10-92); TROPONIN I < 0.04 ng/mL (0.00-0.06)
[2019-11-24] MEDS ORDERED: POTASSIUM CHLORIDE 20 MEQ ERTAB PO SCH (19:15)
[2019-11-24] MEDS: METOPROLOL TARTRATE 25 MG TAB PO SCH (20:45)
[2019-11-24 21:14] VITALS: BP 102/72
[2019-11-25] VITALS (7 sets, daily range): BP systolic 99–127; BP diastolic 55–79
[2019-11-25] MEDS: ERYTHROMYCIN BASE 0.5% OPHTH OINT 1 GM TUBE OU SCH ×4 (00:13→18:33)
--- NOTE | 2019-11-25 06:27 | NUR ---
STATUS Pt had an uneventful night,telemetry reports sinus tach 100's.Pt denies pain or sob. He was offerred a bath,he refused.
[2019-11-25 07:28] LABS: CREATININE 0.6 mg/dL (0.5-1.5)
--- NOTE | 2019-11-25 08:00 | NUR ---
PT AAO X 3 REVIEW PLAN OF CARE, IN SERBIAN. PT STATED THAT HE FELT BETTER THIS AM. BUT SAD. PT IS ON 2 LITER NC. AND SAID THAT HE GET SOB... HOB UP. O2SAT OF95% FALL RISK REVIEW AND CALL LIGHT IN REACH. .
[2019-11-25] MEDS: METOPROLOL TARTRATE 25 MG TAB PO SCH ×2 (08:26→20:14)
[2019-11-25] MEDS: FAMOTIDINE 20MG TAB 20 MG TAB PO SCH ×2 (08:26→20:14)
[2019-11-25] MEDS: AZITHROMYCIN 500MG+NS 250ML 250 ML IV SCH (14:34)
[2019-11-25] MEDS: CEFTRIAXONE SODIUM 1 GM IVP SCH (14:34)
[2019-11-25] MEDS: MORPHINE SULFATE 2 MG/ML 1ML SYG IVP PRN (14:38)
--- NOTE | 2019-11-25 15:30 | NUR ---
DR. VICTOR HERE A ND REVIEW THE CT SCAN. AND STATED THAT HE NEEDED A THORACENTESIS .BUT IS AWARE THE LAST TIME HE REFUSED, REVIEW PLAN OF CARE.
--- NOTE | 2019-11-25 20:55 | NUR ---
REFUSED SHOWER/BATH Pt offerred a shower/bath again,he states in am.
--- NOTE | 2019-11-25 22:00 | NUR ---
REPOSITION Pt states he feels like he's sob.Checked Vs HR 100,sinus tach,02 sat 100 on 02 2lpm via nc,bp 120/70.Pt placed on high garcia's,evangelist well.
--- NOTE | 2019-11-25 23:17 | NUR ---
DENIES PAIN/SOB Pt resting quietly,denies pain or sob.
[2019-11-26] MEDS: METOPROLOL TARTRATE 1 MG/ML 5ML VIAL IV SCH (00:31)
--- NOTE | 2019-11-26 00:37 | NUR ---
STATUS Pt aao x 3,denies pain or sob.Calm.
--- NOTE | 2019-11-26 02:49 | NUR ---
SOB/TACHY Pt got up with assistance,he got sob and tachycardic.Pt assisted back in bed,placed on 02 2lpm via nc.Hob up 30 degrees.Denies pain. Addendum: 11/26/19 at 0352 by NISHA PAZ RN RN HEart rate Sinus tach 150's
[2019-11-26] MEDS: MORPHINE SULFATE 2 MG/ML 1ML SYG IVP PRN (03:05)
--- NOTE | 2019-11-26 03:09 | NUR ---
PAIN pt c/o back pain,medicated with morphine.
[2019-11-26 03:47] VITALS: BP 112/81
--- NOTE | 2019-11-26 03:51 | NUR ---
MED EFFECT Pt appears rena,denies pain.Heart rate sinus tach 120's.
[2019-11-26] MEDS: ERYTHROMYCIN BASE 0.5% OPHTH OINT 1 GM TUBE OU SCH ×5 (05:36→22:46)
[2019-11-26 06:27] LABS: BASOPHILS % (AUTO) 0.4 % (0.0-5.0); EOSINOPHILS % (AUTO) 0.1 % (0.0-8.0); HEMATOCRIT 32.7 % (42-54); LYMPHOCYTES % (AUTO) 4.9 % (21.0-51.0); MEAN CORPUSCULAR HEMOGLOBIN 25.7 pg (27.0-33.0); MEAN CORPUSCULAR HGB CONC 32.1 g/dL (32.0-36.0); MEAN CORPUSCULAR VOLUME 80.1 fL (79-99); MONOCYTES % (AUTO) 5.3 % (3.0-13.0); NEUTROPHILS % (AUTO) 83.9 % (40.0-77.0); PLATELET COUNT (AUTO) 226 K/uL (130-400); RED BLOOD CELL COUNT(AUTO) 4.08 MIL/uL (4.50-6.20); RED CELL DISTRIBUTION WIDTH 14.4 % (11.0-15.5); WHITE BLOOD COUNT (AUTO) 20.7 K/uL (4.8-10.8)
[2019-11-26 06:40] LABS: CREATININE 0.7 mg/dL (0.5-1.5); POTASSIUM 4.3 mmol/L (3.5-5.1)
[2019-11-26 08:00] VITALS: BP 126/75
[2019-11-26] MEDS: METOPROLOL TARTRATE 25 MG TAB PO SCH ×2 (09:32→20:23)
[2019-11-26] MEDS: FAMOTIDINE 20MG TAB 20 MG TAB PO SCH ×2 (09:32→20:23)
[2019-11-26 11:44] LABS: HEMATOCRIT 32.9 % (42-54)
[2019-11-26 11:52] VITALS: BP 102/58
[2019-11-26] MEDS ORDERED: MORPHINE SULFATE 2 MG/ML 1ML SYG IVP PRN (13:15)
[2019-11-26] MEDS ORDERED: HYDROCODONE/ACETAMINOPHEN 5/325 MG TAB PO PRN (13:15)
[2019-11-26] MEDS: CEFTRIAXONE SODIUM 1 GM IVP SCH (14:07)
[2019-11-26] MEDS: AZITHROMYCIN 500MG+NS 250ML 250 ML IV SCH (14:07)
[2019-11-26 16:25] VITALS: BP 123/71
[2019-11-26 19:19] LABS: HEMATOCRIT 30.9 % (42-54)
[2019-11-26 19:50] VITALS: BP 110/59
[2019-11-26] MEDS: LACTULOSE 20 GM/30 ML UDCUP PO SCH ×2 (20:00→22:42)
--- NOTE | 2019-11-26 22:41 | NUR ---
gave enema to patient. he is having loose green bowel movements.
--- NOTE | 2019-11-26 22:42 | NUR ---
gave lactulose 30 ml at 20:00 and at 2242 as md ordered.
--- NOTE | 2019-11-26 22:44 | NUR ---
spoke with little duval, patient's provider about patient's egd procedure tomorrow. she verbalizes understanding.
[2019-11-26] MEDS ORDERED: LACTULOSE 20 GM/30 ML UDCUP PO SCH (23:00)
[2019-11-26 23:21] VITALS: BP 129/64
[2019-11-27 03:39] VITALS: BP 112/66
[2019-11-27] MEDS: ERYTHROMYCIN BASE 0.5% OPHTH OINT 1 GM TUBE OU SCH (04:46)
[2019-11-27] MEDS: METOPROLOL TARTRATE 1 MG/ML 5ML VIAL IV SCH (04:46)
[2019-11-27 05:44] LABS: BASOPHILS % (AUTO) 0.5 % (0.0-5.0); EOSINOPHILS % (AUTO) 0.2 % (0.0-8.0); HEMATOCRIT 35.3 % (42-54); LYMPHOCYTES % (AUTO) 4.6 % (21.0-51.0); MEAN CORPUSCULAR HEMOGLOBIN 25.4 pg (27.0-33.0); MEAN CORPUSCULAR HGB CONC 30.6 g/dL (32.0-36.0); MEAN CORPUSCULAR VOLUME 83.1 fL (79-99); MONOCYTES % (AUTO) 5.8 % (3.0-13.0); NEUTROPHILS % (AUTO) 84.5 % (40.0-77.0); PLATELET COUNT (AUTO) 240 K/uL (130-400); RED BLOOD CELL COUNT(AUTO) 4.25 MIL/uL (4.50-6.20); RED CELL DISTRIBUTION WIDTH 14.6 % (11.0-15.5)
[2019-11-27 05:55] LABS: ALBUMIN 2.1 g/dL (3.5-5.0); BILIRUBIN,TOTAL 0.4 mg/dL (0.2-1.0); CREATININE 0.8 mg/dL (0.5-1.5); POTASSIUM 4.4 mmol/L (3.5-5.1); TOTAL PROTEIN, SERUM 6.2 g/dL (6.0-8.3)
[2019-11-27 08:00] VITALS: BP 127/73
[2019-11-27] MEDS: METOPROLOL TARTRATE 25 MG TAB PO SCH (09:00)
[2019-11-27] MEDS: FAMOTIDINE 20MG TAB 20 MG TAB PO SCH (09:00)
--- NOTE | 2019-11-27 10:52 | NUR ---
AMA PATIENT REQUESTED TO SIGN AMA FORM AT THIS TIME. PATIENT STATED WILL NO LONGER WAIT FOR EGD PROCEDURE AT [address] HERNANDEZ. PATIENT STATED, " I WILL HERE WITH NO WATER OR IV FLUIDS, MY FAMILY DOES NOT WANT ME TO WAIT ANY LONGER, THEY ARE WAITING FOR ME DOWNSTAIRS IN ER". DR. MYLES, DR. EID, DR. HERNANDEZ AND CHARGE NURSE JOSE A HANDLEY MADE AWARE. NO NEW ORDERS AT THIS TIME. PATIENT STATES WOULD LIKE TO BE WHEELED DOWNSTAIRS ALREADY. ALEAH LEY WHEELED PATIENT TO ER LOBBY FOR DISCHARGE.
== END 2019-11-27 11:15 | disposition left against medical advice (07) | DRG 139 ==
LOC: EDH 10:37 → EDHIP 10:38 → OBSVTOIN 10:38 → 3DH 18:30
PROVIDERS: ADMIT Hospitalist; ATTEND Hospitalist
DX: J18.9 Pneumonia, unspecified organism (principal); C78.00 Secondary malignant neoplasm of unspecified lung; K52.9 Noninfective gastroenteritis and colitis, unspecified; Z20.828 Contact with and (suspected) exposure to other viral communicable diseases; Z85.528 Personal history of other malignant neoplasm of kidney; Z92.21 Personal history of antineoplastic chemotherapy; D64.9 Anemia, unspecified; E87.2 Acidosis; H10.9 Unspecified conjunctivitis; J90 Pleural effusion, not elsewhere classified; E87.1 Hypo-osmolality and hyponatremia; R00.0 Tachycardia, unspecified; R53.81 Other malaise; I48.0 Paroxysmal atrial fibrillation; E66.9 Obesity, unspecified; Z68.24 Body mass index [BMI] 24.0-24.9, adult
CPT/HCPCS: 36415; 71045; 80048; 80053; 82270; 82550; 83605; 83690; 83874; 83880; 84484; 85014; 85018; 85025; 85610; 85730; 87040; 87046; 87324; 87426; 87804; 93005; 97039; G0378; J0456; J0696; J2405; J3490; J7030; U0003